=== PATIENT | female | born 1935 | race Caucasian/White ===

== ENCOUNTER → 2024-05-30 08:00 | Outpatient (BNV) | payer OTHER, SELFPAY | PROVIDERS: PCP Internal Medicine; Visit Provider Internal Medicine Medical Oncology | DX: D56.9 Thalassemia, unspecified (principal) | CPT/HCPCS: 99204; 99213 ==

== ENCOUNTER 2025-02-13 05:28 | Outpatient (REF) | payer OTHER, SELFPAY ==
[2025-02-13 05:32] LABS: MANUAL DIFF FLAG NO
[2025-02-13 06:26] LABS: Basophils Percent Auto 0.1 % (0-2); Eosinophils Absolute Auto 0.1 X10*3/uL (0.0-0.4); Eosinophils Percent Auto 0.9 % (0-4); Imm Gran Abs Auto 0.09 X10*3/uL (0.00-0.03); Lymphocytes Absolute Auto 1.3 X10*3/uL (1.2-4.9); Lymphocytes Percent Auto 13.8 % (20-40); Mean Corpuscular HGB Conc 33.3 g/dl (31.0-35.0); Mean Corpuscular Volume 83.9 fL (80.0-98.0); Monocytes Absolute Auto 0.5 X10*3/uL (0.1-1.2); Monocytes Percent Auto 4.9 % (2-11); NRBC Pct Auto 0.4 /100WBC (0.0-0.2); Neutrophils Absolute Auto 7.3 x10*3/uL (2.0-8.3); Neutrophils Percent Auto 79.3 % (45-73); Platelet Count 183 X10*3/uL (160-400); Red Blood Count 3.22 X10*6/uL (4.20-5.50); Red Cell Distribution Width 20.4 % (11.0-16.0); White Blood Count 9.2 X10*3/uL (4.8-10.8)
[2025-02-13 06:35] LABS: Alanine Aminotransferase < 6 U/L (0-31); Albumin Level 2.8 g/dL (3.5-5.0); Alkaline Phosphatase 180 U/L (39-117); Anion Gap 11 (12-20); Aspartate Amino Transferase 22 U/L (5-31); Bilirubin Total 2.5 mg/dL (0.0-1.0); Blood Urea Nitrogen 12 mg/dL (9-16); Carbon Dioxide 26 mmol/L (22-29); Chloride 101 mmol/L (96-108); Estimated Glomerular Filt Rate > 60; Glucose Random 100 mg/dL (60-115); Potassium 4.1 mmol/L (3.3-5.1); Sodium 134 mmol/L (135-145); Total Protein 6.6 g/dL (6.5-8.0)
== END 2025-02-13 05:29 | disposition home or self-care (01) ==
LOC: HO.MMNH2L 05:28
PROVIDERS: Visit Provider Student in an Organized Health Care Education/Training Program
DX: S72.91XD Unspecified fracture of right femur, subsequent encounter for closed fracture with routine healing (principal); J45.909 Unspecified asthma, uncomplicated; E80.4 Gilbert syndrome
CPT/HCPCS: 36415; 80053; 85025

== ENCOUNTER 2025-02-19 05:42 | Outpatient (REF) | payer OTHER, SELFPAY ==
[2025-02-19 05:40] LABS: MANUAL DIFF FLAG NO
[2025-02-19 06:21] LABS: Basophils Absolute Auto 0.1 X10*3/uL (0.0-0.2); Basophils Percent Auto 0.9 % (0-2); Eosinophils Absolute Auto 0.1 X10*3/uL (0.0-0.4); Eosinophils Percent Auto 1.7 % (0-4); Hematocrit 26.8 % (37.0-47.0); Hemoglobin 8.4 g/dl (12.0-16.0); Imm Gran Abs Auto 0.24 X10*3/uL (0.00-0.03); Imm Gran Pct Auto 3.5 % (0.0-0.4); Lymphocytes Absolute Auto 1.6 X10*3/uL (1.2-4.9); Lymphocytes Percent Auto 23.9 % (20-40); Mean Corpuscular HGB Conc 31.3 g/dl (31.0-35.0); Mean Corpuscular Hemoglobin 26.4 pg (27.0-33.0); Mean Corpuscular Volume 84.3 fL (80.0-98.0); Mean Platelet Volume 12.3 fL (9.4-12.3); Monocytes Absolute Auto 0.5 X10*3/uL (0.1-1.2); Monocytes Percent Auto 7.6 % (2-11); NRBC Pct Auto 0.4 /100WBC (0.0-0.2); Neutrophils Absolute Auto 4.3 x10*3/uL (2.0-8.3); Neutrophils Percent Auto 62.4 % (45-73); Platelet Count 311 X10*3/uL (160-400); Red Blood Count 3.18 X10*6/uL (4.20-5.50); Red Cell Distribution Width 21.8 % (11.0-16.0); White Blood Count 6.9 X10*3/uL (4.8-10.8)
[2025-02-19 06:32] LABS: Anion Gap 11 (12-20); Blood Urea Nitrogen 12 mg/dL (9-16); Calcium 7.9 mg/dL (8.4-10.2); Carbon Dioxide 25 mmol/L (22-29); Chloride 102 mmol/L (96-108); Estimated Glomerular Filt Rate > 60; Glucose Random 95 mg/dL (60-115); Potassium 4.1 mmol/L (3.3-5.1); Sodium 134 mmol/L (135-145)
== END 2025-02-19 05:43 | disposition home or self-care (01) ==
LOC: HO.MMNH2L 05:42
PROVIDERS: Visit Provider Student in an Organized Health Care Education/Training Program
DX: S72.91XD Unspecified fracture of right femur, subsequent encounter for closed fracture with routine healing (principal); J45.909 Unspecified asthma, uncomplicated; E80.4 Gilbert syndrome
CPT/HCPCS: 36415; 80048; 85025

== ENCOUNTER 2025-02-26 05:44 | Outpatient (REF) | payer OTHER, SELFPAY ==
[2025-02-26 06:30] LABS: Anion Gap 14 (12-20); Blood Urea Nitrogen 11 mg/dL (9-16); Calcium 8.3 mg/dL (8.4-10.2); Carbon Dioxide 23 mmol/L (22-29); Chloride 102 mmol/L (96-108); Estimated Glomerular Filt Rate > 60; Glucose Random 85 mg/dL (60-115); Potassium 4.8 mmol/L (3.3-5.1); Sodium 134 mmol/L (135-145)
[2025-02-26 06:59] LABS: Basophils Absolute Auto 0.1 X10*3/uL (0.0-0.2); Basophils Percent Auto 1.3 % (0-2); Eosinophils Absolute Auto 0.1 X10*3/uL (0.0-0.4); Eosinophils Percent Auto 1.1 % (0-4); Hematocrit 29.5 % (37.0-47.0); Imm Gran Abs Auto 0.48 X10*3/uL (0.00-0.03); Imm Gran Pct Auto 4.8 % (0.0-0.4); Lymphocytes Absolute Auto 2.8 X10*3/uL (1.2-4.9); Lymphocytes Percent Auto 28.3 % (20-40); MANUAL DIFF FLAG SCAN; Mean Corpuscular HGB Conc 30.5 g/dl (31.0-35.0); Mean Corpuscular Hemoglobin 26.6 pg (27.0-33.0); Mean Corpuscular Volume 87.3 fL (80.0-98.0); Monocytes Absolute Auto 0.4 X10*3/uL (0.1-1.2); Monocytes Percent Auto 4.3 % (2-11); Neutrophils Percent Auto 60.2 % (45-73); Red Blood Count 3.38 X10*6/uL (4.20-5.50); Red Cell Distribution Width 23.6 % (11.0-16.0); SCAN SMEAR FLAG 1
[2025-02-26 07:00] LABS: NRBC Pct Auto 1.8 /100WBC (0.0-0.2); PLT ABN DIST 1
[2025-02-26 07:40] LABS: SLIDE REVIEW VERIFIED
== END 2025-02-26 05:45 | disposition home or self-care (01) ==
LOC: HO.MMNH2L 05:44
PROVIDERS: Visit Provider Student in an Organized Health Care Education/Training Program
DX: S72.91XD Unspecified fracture of right femur, subsequent encounter for closed fracture with routine healing (principal); J45.909 Unspecified asthma, uncomplicated; E80.4 Gilbert syndrome
CPT/HCPCS: 36415; 80048; 84100; 85025

== ENCOUNTER 2025-02-27 23:40 | Outpatient (REF) | payer OTHER, SELFPAY ==
--- OUTSIDE RECORDS SUMMARY | 2025-02-28 07:22 | XMS_ITS | Clinical Summary ---
Author Organization [facility] [address] [place] [address] [address] [place] [address] Phone Care Team Providers Care Pressure Controller Name Role Phone Gino Hewitt MD Primary Care Provider Allergies Active Allergy Reactions Criticality Noted Date Comments Pollen Extracts High 11/08/2023 Other Reaction(s): Runny Nose/Rhinitis Medications metoprolol succinate (TOPROL-XL) 100 mg 24 hr tablet Take 1 tablet (100 mg total) by mouth 1 (one) time each day. 4 Active alendronate (FOSAMAX) 70 mg tablet Take 1 Tablet by mouth every 7 days for 360 days. The tablet must be taken with 6 to 8 oz of plain water. The tablet should be swallowed whole; do not chew or suck. It should be taken this first thing in the morning and 30 minutes before the first food, beverage (except plain water), or other medication(s) of the day. Do not take with mineral water or with other beverages. Patient should stay upright (not to lie down) for 30 minutes and until after first food of the day. 4 025 Active albuterol HFA (PROAIR HFA ; PROVENTIL HFA ; VENTOLIN HFA) 90 mcg/actuation inhaler Inhale 2 Puffs into the lungs 4 times daily as needed for Cough or Wheezing. 4 Active docusate sodium (COLACE) 100 mg capsule Take 1 capsule (100 mg total) by mouth 2 (two) times a day. Active cholecalcifero l (VITAMIN D-3) 50 mcg (2,000 unit) capsule Take by mouth. Activ e omeprazole 20 mg tablet,disinte grat, delay rel Take 1 tablet by mouth 1 (one) time each day. 3 Active hydrOXYzine HCL (ATARAX) 25 mg tablet Take 1 tablet (25 mg total) by mouth every 8 (eight) hours if needed for itching. 270 tablet 5 Active cyclobenzaprin e (FLEXERIL) 10 mg tablet Take 1 tablet (10 mg total) by mouth 3 (three) times a day if needed for muscle spasms. 270 each 5 Active cetirizine (ZyrTEC) 10 mg chewable tablet Chew 1 tablet (10 mg total) at bedtime as needed for allergies. Active polyethylene glycol (MIRALAX) 17 gram packet Take 17 g by mouth 1 (one) time each day if needed for constipation. 510 g 5 025 Active aspirin 81 mg EC tablet Take 1 tablet (81 mg total) by mouth 2 (two) times a day. 84 each 5 025 Active triamcinolone (KENALOG) 0.1 % cream 4 025 Discontinu ed(Entered in Error) diclofenac (VOLTAREN) 1 % topical gel 3 025 Discontinu ed(Entered in Error) simethicone (Mylanta Gas) 125 mg chewable tablet Chew 1 tablet (125 mg total) every 6 (six) hours if needed for flatulence. 60 tablet 11 5 025 Discontinu ed(Entered in Error) acetaminophen (TYLENOL) 325 mg tablet Take 2 tablets (650 mg total) by mouth every 8 (eight) hours if needed for mild pain, fever - temperature GREATER than 38 C (100.4 F), moderate pain or headaches for up to 5 days. 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 04/10/2024 Beta thalassemia, heterozygous 12/03/2023 Anemia 03/22/2023 Asthma 01/07/2023 Chronic sinusitis 01/07/2023 Gastroesophageal reflux disease 01/07/2023 Hypertension 01/07/2023 Resolved Problems Problem Noted Date Diagnosed Date Resolved Date Closed fracture of right hip , initial encounter 02/09/2025 02/12/2025 Closed right hip fracture 02/08/2025 Encounters Date Type Department Care Team Description 02/22/2025 7:43 AM EDT - 02/22/2025 11:59 PM EDT Hospital Encounter [facility] Ortho Xray [address] [place] [address] Pain Discharge Disposition: Home or Self Care 02/08/2025 1:00 PM EDT - 02/08/2025 3:00 PM EDT Surgery [facility] OR [address] [place] [phone] Kulwinder Pickett MD LONG GAMMA NAIL 02/08/2025 11:42 AM EDT Anesthesia Event [facility] OR [address] [place] [phone] Corby Guzmán DO 02/08/2025 5:20 AM EDT - 02/12/2025 2:53 PM EDT Hospital Encounter [facility] Intermediate Care Unit [address] [place] [address] Blake Saini MD Flores, Carlos M, MD Bell, Alistair A, MD Seralathan, Manikandan, MD Closed fracture of right hip, initial encounter ([facility]) (Primary Dx); Closed right hip fracture ([facility]) Discharge Disposition: [facility] 02/07/2025 [facility]phone [facility] - [address] [phone] Gino Hewitt MD 02/06/2025 1:56 PM EDT - 02/06/2025 11:59 PM EDT Hospital Encounter XRAY - [facility] [address] [place], [place] [phone] Pleural effusion on left Discharge Disposition: Home or Self Care 01/23/2025 2:31 PM EST - 01/23/2025 11:59 PM EST Hospital Encounter [facility] [address] [place], [place] [phone] Fall in home, initial encounter; Rib pain on left side Discharge Disposition: Home or Self Care 01/23/2025 2:00 PM EST Office Visit Adult Medicine [facility] [address] [place], [place] [phone] Gino Hewitt MD Fall in home, initial encounter (Primary Dx); Rib pain on left side; Pleural effusion on left 12/11/2024 2:40 PM EST Office Visit Gastroenterology [facility] [address] [facility] [address] [facility] [address] [place] [address] Bill Shepard PA Dysphagia, unspecified type (Primary Dx); Achalasia; Post-nasal drip; Burping from Last 3 Months Immunizations Name Administration Dates Next Due Pfizer SARS-CoV-2 COVID-19, mRNA, LNP-S, preservative free 03/29/2021,03/08/2021 Pneumococcal conjugate 20 va lent (Prevnar 20, PCV 20) 2mo and older 04/06/2023 Tdap Tetanus diptheria acell ular pertussis (Boostrix; Adacel) 7yo and older 04/06/2023 Surgical History Surgery Date Site/Laterality Comments CHOLECYSTECTOMY PROCEDURE: HISTORICAL CHOLECYSTECTOMY Medical History Medical History Date Comments GERD (gastroesophageal reflux disease) DX:GERD (gastroesophageal reflux disease) HTN (hypertension) DX:HTN (hyper tension) Chronic sinusitis DX:Chronic sin usitis Anemia DX:Anemia Bacterial infection due to H. pylori DX:Bacterial infection due to H. pylori Elevated liver enzymes DX:Elevat ed liver enzymes Gilbert's syndrome DX:Gilbert's syndrome Social History Tobacco Use Types Packs/Day Years Used Date Smoking Tobacco: Former Smokeless Tobacco: Never Tobacco Cessation:Counseling Given: Not Answered Alcohol Use Standard Drinks/Week Comments Never 0 (1 standard drink = 0.6 oz pur e alcohol) Housing Instability Answer Date Recorde d Are you worried that in the next 2 months you may not have stable housing? No 01/22/2025 Food Access & Nutrition Answer Date Rec orded Do you have access to a vari ety of food including fruits and vegetables? Yes 01/22/2025 Access to Healthcare Answer Date Record ed Within the last 3 months, ho w many times did you visit the emergency department for your medical care? 0 01/22/2025 Health Literacy Answer Date Recorded How often do you need to hav e someone help you when you read instructions, pamphlets, or other written material from your doctor or pharmacy? Never 01/22/2025 Caregiver: How often do you need to have someone help you when you read instructions, pamphlets, or other written material from your doctor or pharmacy? Not on file 01/22/2025 Financial Risk Answer Date Recorded How hard is it for you to pa y for the very basics like food, housing, medical care, and air conditioning / heating? Not very hard 01/22/2025 Transportation Answer Date Recorded Has the lack of transportati on kept you from meetings, work, or from getting things needed for daily living? No Has the lack of transportati on kept you from medical appointments or from getting medications? No 01/22/2025 Social Isolation Answer Date Recorded How often do you feel lonely or isolated from th ose around you? Rarely 01/22/2025 Food Risk Answer Date Recorded Within the past 12 months we worried whether our food would run out before we got money to buy more. Never true 01/22/2025 Within the past 12 months th e food we bought just didn't last and we didn't have money to get more. Never true 01/22/2025 Dependent Care Answer Date Recorded Do you need help finding or paying for care for your loved ones. For example, daycare manager or elderly care for an older adult? No 01/22/2025 Education Answer Date Recorded Do you think completing more education or training, like finishing a GED, going to college, or learning a trade, would be helpful for you? No 01/22/2025 Employment and Income Answer Date Recor ded During the last four weeks, have you been actively looking for work? No 01/22/2025 Living Situation Answer Date Recorded What is your living situation? 0 01/22/2025 Interpersonal Safety Answer Date Record ed Physical Abuse 02/08/2025 Verbal Abuse 02/08/2025 Comments Unknown Sex and Gender Information Value Date Recorded Sex Assigned at Not on file Legal Sex Female 4:34 PM EST Gender Identity Not on file Sexual Orientation Not on file Obstetrics History Last Filed Vital Signs Vital Sign Reading Time Taken Comments Blood Pressure 127/99 02/12/2025 11:07 AM EDT Pulse 99 02/12/2025 11:07 AM EDT Temperature 36.8 ??C (98.2 ??F) 02/12/2025 11:07 AM E DT Respiratory Rate 22 02/12/2025 11:07 AM EDT Oxygen Saturation 97% 02/12/2025 8:52 AM EDT Inhaled Oxygen Concentration - - Weight 47.2 kg (104 lb) 02/08/2025 5:30 AM EDT Height 152.4 cm (5') 02/08/2025 5:30 AM EDT Body Mass Index 20.31 02/08/2025 5:30 AM EDT Plan of Treatment Health Maintenance Due Date Last Done Comments Hepatitis A Vaccines (1 of 2 - Risk 2-dose series) 1956 Zoster Vaccines (1 of 2) 1987 Hepatitis B Vaccines (1 of 3 - Risk 3-dose series) 1997 RSV Immunization Patients 60+ Years Old (1 - 1-dose 75+ series) 2012 Medicare Annual Wellness Visit 12/28/2023 COVID-19 Vaccine (3 - season) 2024 03/29/2021, 03/08/2021 Influenza Vaccine (#1) 2024 12/12/2017 Depression Screening 01/22/2026 01/22/2025 Social Influencers of Health Screening 01/22/2026 01/22/2025 Hypertension/CHF/CAD Annual BMP Blood Test 02/11/2026 02/11/2025, 02/10/2025, 02/09/2025, Additional history exists Falls Risk Assessment 02/12/2026 02/12/2025, 025 Cholesterol Screening (Lipid Panel) 03/15/2028 03/15/2023 DTaP,Tdap,and Td Vaccines (2 - Td or Tdap) 04/06/2033 04/06/2023 Osteoporosis Screening (Bone Density Screening) 04/10/2034 04/10/2024, 04/10/2024, 08/26/2018 Pneumococcal Vaccine: 50+ Years Completed 04/06/2023, 12/12/2017 HIB Vaccines Aged Out No longer eligi ble based on patient's age to complete this topic HPV Vaccines Aged Out No longer eligi ble based on patient's age to complete this topic IPV Vaccines Aged Out No longer eligi ble based on patient's age to complete this topic MMR Vaccines Aged Out No longer eligi ble based on patient's age to complete this topic Meningococcal ACWY Vaccine Aged Out N o longer eligible based on patient's age to complete this topic Meningococcal B Vacine Aged Out No lo nger eligible based on patient's age to complete this topic RSV Immunization Patients Under 20 months Aged Out No longer eligible based on patient's age to complete this topic Varicella Vaccines Aged Out No longer eligible based on patient's age to complete this topic Medical Devices Implanted Type Area Tour Bus Driver Device Identifier Shelf Expiration Date Model / Serial / Lot Screw Locking 5x42.5mm - Sna - [id number] Implanted:Qty: 1 on 02/08/2025 by Kulwinder Pickett MD at [facility] Internal and External Fixation Right: Hip [employer] [id number] 08/28/2034 2360-504 2S / NA / [id number] [id number] Nail Long Right [id number] 125deg - Sn/A - [id number] Implanted:Qty: 1 on 02/08/2025 by Kulwinder Pickett MD at [facility] Internal and External Fixation Right: Hip [employer] 04/28/2034 8425-034 0S / N/A / [id number] Screw Lag D10.5x90mm - Sn/A - [id number] Implanted:Qty: 1 on 02/08/2025 by Kulwinder Pickett MD at [facility] Internal and External Fixation Right: Hip [employer] 09/28/2034 8160-009 0S / N/A / [id number] Procedures Procedure Name Priority Date/Time Associated Diagnosis Comments XR FEMUR 2+ VIEWS RIGHT Routine 02/22/2025 10:18 AM EDT Pain ECG ANNOTATED 02/13/2025 SST - GOLD Routine 02/12/2025 5:39 AM EDT EXTRA TUBES Routine 02/12/2025 5:39 AM EDT COMPLETE BLOOD COUNT Routine 02/12/2025 5:39 AM EDT OXYGEN THERAPY, ADULT Routine 02/11/2025 8:01 AM EDT BASIC METABOLIC PANEL Routine 02/11/2025 5:55 AM EDT COMPLETE BLOOD COUNT Routine 02/11/2025 5:55 AM EDT OXYGEN THERAPY, ADULT Routine 02/10/2025 8:01 PM EDT HEMOGLOBIN AND HEMATOCRIT Routine 02/10/2025 5:52 PM EDT TRANSFUSE RED BLOOD CELLS Routine 02/10/2025 9:11 AM EDT OXYGEN THERAPY, ADULT Routine 02/10/2025 8:01 AM EDT PEP THERAPY Routine 02/10/2025 6:00 AM EDT MANUAL DIFFERENTIAL - SYSMEX WAM Routine 02/10/2025 5:54 AM EDT CBC WITH AUTO DIFFERENTIAL Routine 02/10/2025 5:54 AM EDT HEPATIC FUNCTION PANEL Routine 02/10/2025 5:54 AM EDT PHOSPHORUS Routine 02/10/2025 5:54 AM EDT MAGNESIUM Routine 02/10/2025 5:54 AM EDT BASIC METABOLIC PANEL Routine 02/10/2025 5:54 AM EDT CBC AND DIFFERENTIAL Routine 02/10/2025 5:54 AM EDT SANCHEZ URINE CULTURE TUBE Routine 02/09/2025 10:35 PM EDT URINALYSIS WITH REFLEX MICROSCOPIC AND CULTURE Routine 02/09/2025 10:35 PM EDT URINALYSIS WITH REFLEX MICROSCOPIC AND CULTURE Routine 02/09/2025 10:35 PM EDT CULTURE URINE Routine 02/09/2025 10:35 PM EDT OXYGEN THERAPY, ADULT Routine 02/09/2025 8:01 PM EDT ECG 12-LEAD STAT 02/09/2025 7:37 PM EDT CULTURE BLOOD Routine 02/09/2025 7:05 PM EDT CBC WITH AUTO DIFFERENTIAL Routine 02/09/2025 7:00 PM EDT CBC AND DIFFERENTIAL Routine 02/09/2025 7:00 PM EDT CULTURE BLOOD Routine 02/09/2025 7:00 PM EDT POCT GLUCOSE BLOOD Routine 02/09/2025 6: 43 PM EDT OXYGEN THERAPY, ADULT Routine 02/09/2025 2:37 PM EDT OXYGEN THERAPY, ADULT Routine 02/09/2025 2:37 PM EDT PEP THERAPY Routine 02/09/2025 12:33 PM EDT TRANSFUSE RED BLOOD CELLS Routine 02/09/2025 10:52 AM EDT PREPARE RBC Routine 02/09/2025 7:10 AM EDT MANUAL DIFFERENTIAL - SYSMEX WAM Routine 02/09/2025 6:06 AM EDT CBC WITH AUTO DIFFERENTIAL Routine 02/09/2025 6:06 AM EDT CBC AND DIFFERENTIAL Routine 02/09/2025 6:06 AM EDT MAGNESIUM Routine 02/09/2025 6:06 AM EDT BASIC METABOLIC PANEL Routine 02/09/2025 6:06 AM EDT ALBUMIN Routine 02/08/2025 9:09 PM EDT HEMOGLOBIN AND HEMATOCRIT Routine 02/08/2025 6:29 PM EDT XR HIP 2-3 VIEWS RIGHT Routine 02/08/2025 2:43 PM EDT TRANSFUSE RED BLOOD CELLS Routine 02/08/2025 1:42 PM EDT TH AN ENDOTRACHEAL(NO CHARGE) Routine 02/08/2025 1:25 PM EDT ORIF HIP 02/08/2025 12:36 PM EDT Case Notes C-ARM,FX-TABLE PROTHROMBIN TIME WITH INR STAT 02/08/2025 12:14 PM EDT PREPARE RBC STAT 02/08/2025 11:42 AM EDT PREPARE RBC Routine 02/08/2025 9:14 AM EDT ECG 12-LEAD STAT 02/08/2025 9:07 AM EDT XR CHEST 1 VIEW STAT 02/08/2025 6:40 AM EDT XR HIP 2-3 VIEWS RIGHT STAT 02/08/2025 6:[address] HEAD WO CONTRAST STAT 02/08/2025 6 :30 AM EDT E ANTIGEN TYPE Routine 02/08/2025 5:54 AM EDT C ANTIGEN TYPE Routine 02/08/2025 5:54 AM EDT JKB ANTIGEN TYPE Routine 02/08/2025 5:54 AM EDT ANTIBODY IDENTIFICATION Routine 02/08/2025 5:54 AM EDT IRON AND TIBC Add-On 02/08/2025 5:54 AM EDT FERRITIN Add-On 02/08/2025 5:54 AM EDT RETICULOCYTE COUNT Add-On 02/08/2025 5: 54 AM EDT HAPTOGLOBIN Add-On 02/08/2025 5:54 AM EDT FOLATE Add-On 02/08/2025 5:54 AM EDT VITAMIN B12 Add-On 02/08/2025 5:54 AM EDT CBC WITH AUTO DIFFERENTIAL STAT 02/08/2025 5:54 AM EDT TYPE AND SCREEN STAT 02/08/2025 5:54 AM EDT CBC AND DIFFERENTIAL STAT 02/08/2025 5:54 AM EDT COMPREHENSIVE METABOLIC PANEL STAT 02/08/2025 5:[address] REPORT 02/08/2025 XR CHEST 2 VIEWS Routine 02/06/2025 2:22 PM EDT Pleural effusion on left XR RIBS W CHEST 3+ VIEWS LEFT Routine 01/23/2025 2:54 PM EST Fall in home, initial encounter Rib pain on left side EXTERNAL XRAY REPORT 01/23/2025 DXA BONE DENSITY STUDY 1+ SITS AXIAL SKEL Routine 04/10/2024 1:44 PM EDT Encounter for screening for osteoporosis LIPID PANEL Routine 03/15/2023 from Last 3 Months or Most Recently Relevant to Health Maintenance Results * XR Femur 2+ Views Right (02/22/2025 10:18 AM EDT) Narrative RIS PACS/VR - 02/22/2025 10:18 AM EDT This order has been auto-finalized and does not contain a result. us Ann Valle MD IMG XR PROCEDURES Final Result RIS PACS/VR * ECG-Annotated (02/13/2025) Provider Onbase MD ECG ORDERABLES Final Result * SST tube (02/12/2025 5:39 AM EDT) Pathologist [facility] Extra Tube Hold for add-ons. 02/12/2025 8:01 AM EDT [facility] Comment:Auto resulted. Blood Venous blood specimen / Unknown Venipuncture / Unknown 02/12/2025 5:39 AM EDT 02/12/2025 6:13 AM EDT Minh Childress MD LAB BLOOD ORDERABLES Fi nal Result Performing Organization Address City/[facility]/ZIP Co de Phone Number [facility] [address] [place] [address], [place] [phone] * (ABNORMAL) Complete blood count (02/12/2025 5:39 AM EDT) Only the most recent of2 resultswithin the time period is included. WBC 9.7 4.8 - 10.8 K/mcL LAB HEMETOLOGY METHOD 02/12/2025 6:55 AM EDT [facility] RBC 3.20(L) 3.80 - 4.80 M/[facility] LAB HEMETOLOGY METHOD 02/12/2025 6:55 AM EDT [facility] Hemoglobin 8.8(L) 11.5 - 16.0 g/dL LAB HEMETOLOGY METHOD 02/12/2025 6:55 AM EDT [facility] Hematocrit 27.8(L) 35.0 - 47.0 % LAB HEMETOLOGY METHOD 02/12/2025 6:55 AM EDT [facility] MCV 86.1 79.0 - 98.0 FL LAB HEMETOLOGY METHOD 02/12/2025 6:55 AM EDT [facility] MCH 27.2 27.0 - 32.0 pcg LAB HEMETOLOGY METHOD 02/12/2025 6:55 AM EDT [facility] MCHC 31.7(L) 32.0 - 37.0 g/dL LAB HEMETOLOGY METHOD 02/12/2025 6:55 AM EDT [facility] RDW 19.9(H) 11.0 - 15.0 % LAB HEMETOLOGY METHOD 02/12/2025 6:55 AM EDT [facility] Platelets 147 130 - 400 K/mcL LAB HEMETOLOGY METHOD 02/12/2025 6:55 AM EDT [facility] MPV LAB HEMETOLOGY METHOD 02/12/2025 6:55 AM EDT [facility] Comment:Not Measured NRBC 0.3 <1.0 % LAB HEMETOLOGY METHOD 02/12/2025 6:55 AM EDT [facility] NRBC Absolute 0.03 <0.10 K/mcL LAB HEMETOLOGY METHOD 02/12/2025 6:55 AM EDT [facility] Blood Venous blood specimen / Unknown Venipuncture / Unknown 02/12/2025 5:39 AM EDT 02/12/2025 6:12 AM EDT us Marc Salvador MD LAB BLOOD ORDERABLES Final Re sult [facility] [address] [place] [address], * (ABNORMAL) Basic metabolic panel (02/11/2025 5:55 AM EDT) Only the most recent of3 resultswithin the time period is included. Sodium 132(L) 133 - 145 mmol/L LAB CHEMISTRY METHOD 02/11/2025 7:04 AM [facility] Potassium 4.3 3.5 - 5.5 mmol/L LAB CHEMISTRY METHOD 02/11/2025 7:04 AM [facility] Chloride 98 96 - 110 mmol/L LAB CHEMISTRY METHOD 02/11/2025 7:04 AM [facility] CO2 29 21 - 32 mmol/L LAB CHEMISTRY METHOD 02/11/2025 7:04 AM [facility] Anion Gap 5 3 - 11 LAB CHEMISTRY METHOD 02/11/2025 7:04 AM [facility] Glucose 105(H) 70 - 100 mg/dL LAB CHEMISTRY METHOD 02/11/2025 7:04 AM [facility] BUN 17 5 - 25 mg/dL LAB CHEMISTRY METHOD 02/11/2025 7:04 AM [facility] Creatinine 0.48(L) 0.50 - 1.10 mg/dL LAB CHEMISTRY METHOD 02/11/2025 7:04 AM [facility] eGFR 92 >=60 mL/min/1. 73m2 LAB CHEMISTRY METHOD 02/11/2025 7:04 AM [facility] Comment:Calculation based on the??Chronic Kidney Disease Epidemiology Collaboration (CKD-EPI) equation refit??without adjustment for race. BUN/Creatinine Ratio 35.4 LAB CHEMISTRY METHOD 02/11/2025 7:04 AM [facility] Calcium 7.6(L) 8.5 - 10.5 mg/dL LAB CHEMISTRY METHOD 02/11/2025 7:04 AM [facility] Blood Venous blood specimen / Unknown Venipuncture / Unknown 02/11/2025 5:55 AM EDT 02/11/2025 6:19 AM EDT us Marc Salvador MD LAB BLOOD ORDERABLES Final Re sult Performing Organization Address City/[facility]/ZIP Co de Phone Number [facility] [address] [place] [address], [place] [phone] * (ABNORMAL) Hemoglobin and hematocrit (02/10/2025 5:52 PM EDT) Only the most recent of2 resultswithin the time period is included. [facility] Hemoglobin 8.7(L) 11.5 - 16.0 g/dL LAB HEMETOLOGY METHOD 02/10/2025 6:30 PM EDT [facility] Hematocrit 26.9(L) 35.0 - 47.0 % LAB HEMETOLOGY METHOD 02/10/2025 6:30 PM EDT [facility] Blood Venous blood specimen / Unknown Venipuncture / Unknown 02/10/2025 5:52 PM EDT 02/10/2025 6:15 PM EDT us Marc Salvador MD LAB BLOOD ORDERABLES Final Re sult Performing Organization Address [facility] Co de Phone Number [facility] [address] [place] [address], [place] [phone] * Transfuse RBC (02/10/2025 11:51 AM EDT) Only the most recent of3 resultswithin the time period is included. us Marc Salvador MD BLOOD TRANSFUSION ORDERABLES Final Result * (ABNORMAL) Manual differential (02/10/2025 5:54 AM EDT) Only the most recent of2 resultswithin the time period is included. Neutrophils % 89.0 % LAB HEMETOLOGY METHOD 02/10/2025 7:47 AM EDT [facility] Lymphocytes % 5.0 % LAB HEMETOLOGY METHOD 02/10/2025 7:47 AM EDT [facility] Monocytes % 4.0 % LAB HEMETOLOGY METHOD 02/10/2025 7:47 AM [facility] Eosinophils % 0.0 % LAB HEMETOLOGY METHOD 02/10/2025 7:47 AM [facility] Basophils % 0.0 % LAB HEMETOLOGY METHOD 02/10/2025 7:47 AM [facility] Metamyelocytes % 1.0(H) % LAB HEMETOLOGY METHOD 02/10/2025 7:47 AM [facility] Promyelocytes % 2.0(H) % LAB HEMETOLOGY METHOD 02/10/2025 7:47 AM [facility] Neutrophils Absolute Manual 11.48(H) 1.50 - 7.00 K/mcL LAB HEMETOLOGY METHOD 02/10/2025 7:47 AM [facility] Lymphocytes Absolute 0.65(L) 1.00 - 5.00 K/mcL LAB HEMETOLOGY METHOD 02/10/2025 7:47 AM [facility] Monocytes Absolute Manual 0.52 0.20 - 1.00 K/mcL LAB HEMETOLOGY METHOD 02/10/2025 7:47 AM [facility] Eosinophils Absolute Manual 0.00 0.00 - 0.50 K/mcL LAB HEMETOLOGY METHOD 02/10/2025 7:47 AM [facility] Basophils Absolute Manual 0.00 0.00 - 0.20 K/mcL LAB HEMETOLOGY METHOD 02/10/2025 7:47 AM [facility] Metamyelocytes Absolute Manual 0.13(H) 0.00 - 0.00 K/mcL LAB HEMETOLOGY METHOD 02/10/2025 7:47 AM [facility] Promyelocytes Absolute Manual 0.26(H) 0.00 - 0.00 K/mcL LAB HEMETOLOGY METHOD 02/10/2025 7:47 AM EDT [facility] Rbc Morphology Present( A) Consistent with indices, Normal for [place] LAB HEMETOLOGY METHOD 02/10/2025 7:47 AM EDT [facility] Platelet Morphology - WAM See Note(A) Normal LAB HEMETOLOGY METHOD 02/10/2025 7:47 AM EDT [facility] Comment:PLT: Normal Polychromasia Present Present( A) (none) LAB HEMETOLOGY METHOD 02/10/2025 7:47 AM EDT [facility] Schistocytes Present < 5%(A) (none) LAB HEMETOLOGY METHOD 02/10/2025 7:47 AM EDT [facility] Tear Drop Cells Present 5 - 10%(A) (none) LAB HEMETOLOGY METHOD 02/10/2025 7:47 AM EDT [facility] Blood Venous blood specimen / Unknown Venipuncture / Unknown 02/10/2025 5:54 AM EDT 02/10/2025 6:47 AM EDT us Sophie Noonan NP LAB BLOOD ORDERABLES Final Resul t [facility] [address] [place] [address], * (ABNORMAL) CBC auto differential (02/10/2025 5:54 AM EDT) Only the most recent of4 resultswithin the time period is included. WBC 12.9(H) 4.8 - 10.8 K/mcL LAB HEMETOLOGY METHOD 02/10/2025 7:47 AM EDT [facility] RBC 2.50(L) 3.80 - 4.80 M/mcL LAB HEMETOLOGY METHOD 02/10/2025 7:47 AM EDT [facility] Hemoglobin 6.8(L) 11.5 - 16.0 g/dL LAB HEMETOLOGY METHOD 02/10/2025 7:47 AM EDT [facility] Hematocrit 21.0(L) 35.0 - 47.0 % LAB HEMETOLOGY METHOD 02/10/2025 7:47 AM EDT [facility] MCV 84.3 79.0 - 98.0 FL LAB HEMETOLOGY METHOD 02/10/2025 7:47 AM EDT [facility] MCH 27.3 27.0 - 32.0 pcg LAB HEMETOLOGY METHOD 02/10/2025 7:47 AM EDT [facility] MCHC 32.4 32.0 - 37.0 g/dL LAB HEMETOLOGY METHOD 02/10[facility]2025 7[facility] RDW 20.4(H) 11.0 - 15.0 % LAB HEMETOLOGY METHOD 02/10/2025 7:47 [facility] Platelets 110(L) 130 - 400 K/mcL LAB HEMETOLOGY METHOD 02/10/2025 7:47 AM EDT [facility] MPV LAB HEMETOLOGY METHOD 02/10/2025 7:47 AM EDT [facility] Comment:Not Measured NRBC 0.6 <1.0 % LAB HEMETOLOGY METHOD 02/10/2025 7:47 AM EDT [facility] NRBC Absolute 0.08 <0.10 K/mcL LAB HEMETOLOGY METHOD 02/10/2025 7:47 AM T [facility] Blood Venous blood specimen / Unknown Venipuncture / Unknown 02/10/2025 5:54 AM EDT 02/10/2025 6:47 AM EDT us Sophie Noonan NP LAB BLOOD ORDERABLES Final Resul t [facility] [address] [place] [address], [place] [phone] * (ABNORMAL) Phosphorus (02/10/2025 5:54 AM EDT) Pathologist [facility] Phosphorus 1.9(L) 2.5 - 4.5 mg/dL LAB CHEMISTRY METHOD 02/10/2025 7:44 AM EDT [facility] Blood Venous blood specimen / Unknown Venipuncture / Unknown 02/10/2025 5:54 AM EDT 02/10/2025 6:47 AM EDT Sophie Noonan NP LAB BLOOD ORDERABLES Final Resul t Performing Organization Address [facility] de Phone Number [facility] [address] [place] [address], [place] [phone] * Magnesium (02/10/2025 5:54 AM EDT) Only the most recent of2 resultswithin the time period is included. [facility] Magnesium 2.1 1.9 - 2.6 mg/dL LAB CHEMISTRY METHOD 02/10/2025 7:44 AM EDT [facility] Blood Venous blood specimen / Unknown Venipuncture / Unknown 02/10/2025 5:54 AM EDT 02/10/2025 6:47 AM EDT us Sophie Noonan NP LAB BLOOD ORDERABLES Final Resul t Performing Organization Address City/[facility]/ZIP Co de Phone Number [facility] [address] [place] [address], [place] [phone] * (ABNORMAL) Hepatic function panel (02/10/2025 5:54 AM EDT) Pathologist [facility] Total Protein 5.5(L) 6.0 - 8.0 g/dL LAB CHEMISTRY METHOD 02/10/2025 8:01 AM EDT [facility] Albumin 2.5(L) 3.2 - 5.0 g/dL LAB CHEMISTRY METHOD 02/10/2025 8:01 AM EDT [facility] Total Bilirubin 4.0(H) 0.0 - 1.4 mg/dL LAB CHEMISTRY METHOD 02/10/2025 8:01 AM [facility] Bilirubin, Direct 1.5(H) 0.0 - 0.3 mg/dL LAB CHEMISTRY METHOD 02/10/2025 8:01 AM [facility] Bilirubin, Indirect 2.5(H) 0.0 - 1.1 mg/dL LAB CHEMISTRY METHOD 02/10/2025 8:01 AM [facility] ALT (SGPT) <6(L) 10 - 60 unit/L LAB CHEMISTRY METHOD 02/10/2025 8:01 AM [facility] Comment:Results verified by repeat testing AST (SGOT) 18 10 - 42 unit/L LAB CHEMISTRY METHOD 02/10/2025 8:01 AM [facility] Alkaline Phosphatase 155(H) 42 - 121 unit/L LAB CHEMISTRY METHOD 02/10/2025 8:01 AM [facility] Blood Venous blood specimen / Unknown Venipuncture / Unknown 02/10/2025 5:54 AM EDT 02/10/2025 6:47 AM EDT us Sophie Noonan NP LAB BLOOD ORDERABLES Final Resul t [facility] [address] [place] [address], [place] [phone] * (ABNORMAL) Urinalysis with reflex microscopic and culture (02/09/2025 10:35 PM EDT) Specific [place] Urine 1.017 1.003 - 1.030 LAB URINALYSIS - AUTOMATED METHOD 02/10/2025 12:53 AM [facility] pH, Urine 5.5 5.0 - 8.0 pH LAB URINALYSIS - AUTOMATED METHOD 02/10/2025 12:53 AM [facility] Leukocytes, Urine Trace(A) Negative LAB URINALYSIS - AUTOMATED METHOD 02/10/2025 12:53 AM [facility] Nitrite, Urine Negative Negative LAB URINALYSIS - AUTOMATED METHOD 02/10/2025 12:53 AM [facility] Protein, Urine 30(A) <=Trace mg/dL LAB URINALYSIS - AUTOMATED METHOD 02/10/2025 12:53 AM [facility] Glucose, Urine Negative Negative mg/dL LAB URINALYSIS - AUTOMATED METHOD 02/10/2025 12:53 AM [facility] Ketones, Urine Trace(A) Negative mg/dL LAB URINALYSIS - AUTOMATED METHOD 02/10/2025 12:53 AM [facility] Urobilinogen , Urine 1.0 0.2 - 1.0 mg/dL LAB URINALYSIS - AUTOMATED METHOD 02/10/2025 12:53 AM [facility] Bilirubin, Urine Negative Negative LAB URINALYSIS - AUTOMATED METHOD 02/10/2025 12:53 AM [facility] Blood, Urine Small(A) Negative LAB URINALYSIS - AUTOMATED METHOD 02/10/2025 12:53 AM [facility] RBC, Urine 6.2(H) 0 - 4 /HPF LAB URINALYSIS - AUTOMATED METHOD 02/10/2025 12:53 AM [facility] WBC, Urine 2.4 0 - 4 /HPF LAB URINALYSIS - AUTOMATED METHOD 02/10/2025 12:53 AM [facility] Squamous Epithelial, Urine 28 0 - 60 /LPF LAB URINALYSIS - AUTOMATED METHOD 02/10/2025 12:53 AM [facility] Bacteria, Urine Negative Negative /HPF LAB URINALYSIS - AUTOMATED METHOD 02/10/2025 12:53 AM [facility] Hyaline Casts, Urine 12.0(H) 0 - 3 /LPF LAB URINALYSIS - AUTOMATED METHOD 02/10/2025 12:53 AM EDT [facility] Other Casts, Urine 2-5 FINE GRANULAR CASTS /LPF 02/10/2025 12:53 AM EDT [facility] Urine Urine specimen from urinary conduit / Unknown Non-blood Collection / Unknown 02/09/2025 10:35 PM EDT 02/10/2025 12:16 AM EDT us Marc Salvador MD LAB URINE ORDERABLES Edited R esult - Final [facility] [address] [place] [address], [place] [phone] * Sanchez urine culture tube (02/09/2025 10:35 PM EDT) Extra Tube Hold for add-ons. 02/10/2025 2:01 AM EDT [facility] Comment:Auto resulted. Urine Urine specimen from urinary conduit / Unknown Non-blood Collection / Unknown 02/09/2025 10:35 PM EDT 02/10/2025 12:16 AM EDT us Marc Salvador MD LAB URINE ORDERABLES Final Re sult [facility] [address] [place] [address], [place] [phone] * Culture urine (02/09/2025 10:35 PM EDT) Urine Urine specimen from urinary conduit / Unknown Non-blood Collection / Unknown 02/09/2025 10:35 PM EDT 02/10/2025 12:51 AM EDT Narrative [facility] - 02/12/2025 9:43 AM EDT Urine culture not performed. ??Please contact Infection Control if additional information is required. us Marc Salvador MD LAB MICROBIOLOGY - GENERAL OR DERABLES Final Result Performing Organization Address [facility] Co de Phone Number [facility] [address] [place] [address], [place] [phone] * ECG 12 lead (02/09/2025 7:37 PM EDT) Only the most recent of2 resultswithin the time period is included. Ventricular Rate ECG 106 BPM GEMUSE Atrial Rate 106 BPM GEMUSE P-R Interval 148 ms GEMUSE QRS Duration 68 ms GEMUSE Q-T Interval 324 ms GEMUSE QTc 430 ms GEMUSE P Wave [place] 54 degrees GEMUSE R [place] -32 degrees GEMUSE T [place] 55 degrees GEMUSE ECG Interpretation Sinus tachycardia with Premature atrial complexes Left axis deviation Minimal voltage criteria for LVH, may be normal variant Poor R wave progression Abnormal ECG When compared with ECG of 08-FEB-2025 09:07, No significant change was found Confirmed by Martine SARGENT JAMES ([id number]) on 02/10/2025 8:31:59 PM GEMUSE 02/09/2025 7:37 PM EDT 02/10/2025 8:31 PM EDT us Marc Salvador MD ECG ORDERABLES Final Result Performing Organization Address [facility] de Phone Number GEMUSE * Culture blood (02/09/2025 7:05 PM EDT) Only the most recent of2 resultswithin the time period is included. Culture, Blood No growth at 5 days 02/14/2025 8:01 PM EDT [facility] Blood Venous blood specimen / Unknown Venipuncture / Unknown 02/09/2025 7:05 PM EDT 02/09/2025 7:11 PM EDT us Marc Salvador MD LAB MICROBIOLOGY - GENERAL OR DERABLES Final Result [facility] [address] [place] [address], [place] [phone] * (ABNORMAL) POCT Glucose, blood (02/09/2025 6:43 PM EDT) Glucose POCT 176(H) 70 - 100 mg/dL 02/09/2025 6:44 PM EDT [facility] Blood Capillary blood specimen / Unknown 02/09/2025 6:43 PM EDT 02/09/2025 6:45 PM EDT Marc Salvador MD LAB POINT OF CARE TE ST DOCKED DEVICE UNSOLICITED RESULTS Final Result [facility] [address] [place] [address], [place] [phone] * Prepare RBC: 1 Units (02/09/2025 7:10 AM EDT) Only the most recent of3 resultswithin the time period is included. Product Code [id number] 02/12/2025 7:05 AM EDT [facility] Unit Number [id number] 02/13/20 25 7:05 AM EDT [facility] Crossmatch Compatible 02/09/2025 1:31 PM EDT [facility] Dispense Status Released From Crossmatch 02/12/2025 7:05 AM EDT [facility] Unit ABO Rh ONEG 02/12/2025 7:05 AM EDT [facility] Unit Expiration Date Time [id number] [facility] Type 9500 [facility]25 [facility] Blood Venous blood specimen / Unknown 02/09/2025 7:10 AM EDT 02/08/2025 6:18 AM EDT Kulwinder Lobo MD BLOOD BANK PRODUCT ORDERABL ES Final Result Performing Organization Address [facility] de Phone Number [facility] [address] [place] [address], [place] [phone] * (ABNORMAL) Serum albumin (02/08/2025 9:09 PM EDT) Albumin 2.5(L) 3.2 - 5.0 g/dL LAB CHEMISTRY METHOD 02/08/2025 9:29 PM EDT [facility] Blood Venous blood specimen / Unknown Venipuncture / Unknown 02/08/2025 9:09 PM EDT 02/08/2025 9:09 PM EDT Jameel Mendez NP LAB BLOOD ORDERABLES Final Resul t Performing Organization Address [facility] de Phone Number [facility] [address] [place] [address], [place] [phone] * XR Hip 2-3 Views Right (02/08/2025 2:43 PM EDT) Only the most recent of2 resultswithin the time period is included. Anatomical Region Laterality Modality Lower Extremities, Hip Right Radio Flu oroscopy 02/09/2025 8:46 AM EDT Impressions 02/09/2025 8:49 AM EDT Imaging assistance provided during instrumentation and fixation of the previously demonstrated proximal right femoral fracture -------- FINAL REPORT -------- Dictated By: Nick Flaherty Dictated Date: 02/09/2025 08:46 ET Assigned Physician: Nick Flaherty Reviewed and Electronically Signed By: Nick Flaherty Signed Date: 02/09/2025 08:49 ET Workstation ID: [id number] Transcribed By: Self Edit Transcribed Date: 02/09/2025 08:46 ET Narrative 02/09/2025 8:49 AM EDT EXAMINATION: Imaging assistance provided during a procedure CLINICAL INFORMATION: Long gamma nail right hip COMPARISON: 02/08/2025 TECHNIQUE: ORTHOPEDIC-Imaging assistance was provided during an orthopedic procedure. Total dose area product: 7589.8 mGycm2 Fluoroscopy time: 3 minutes 26.8 seconds FINDINGS: Images obtained in the operating room during instrumentation of the right femur. The distal aspect of an intramedullary elle extends through the distal metaphysis with a single distal interlocking screw. The antegrade intramedullary elle enters via the greater trochanter. Orthogonal threaded nail projects through the intratrochanteric region, femoral neck and projects into the femoral head. The alignment is much improved when compared to preoperative images. There is comminution of the lesser trochanter. Procedure Note Nick Flaherty MD - 02/09/2025 EXAMINATION: Imaging assistance provided during a procedure CLINICAL INFORMATION: Long gamma nail right hip COMPARISON: 02/08/2025 TECHNIQUE: ORTHOPEDIC-Imaging assistance was provided during an orthopedic procedure. Total dose area product: 7589.8 mGycm2 Fluoroscopy time: 3 minutes 26.8 seconds FINDINGS: Images obtained in the operating room during instrumentation of the rightfemur. The distal aspect of an intramedullary elle extends through the distalmetaphysis with a single distal interlocking screw. The antegradeintramedullary elle enters via the greater trochanter. Orthogonal threadednail projects through the intratrochanteric region, femoral neck andprojects into the femoral head. The alignment is much improved when compared to preoperative images. Thereis comminution of the lesser trochanter. IMPRESSION: Imaging assistance provided during instrumentation and fixation of thepreviously demonstrated proximal right femoral fracture -------- FINAL REPORT -------- Dictated By: Nick Flaherty Dictated Date: 02/09/2025 08:46 ET Assigned Physician: Nick Flaherty Reviewed and Electronically Signed By: Nick Flahetry Signed Date: 02/09/2025 08:49 ET Workstation ID: [id number] Transcribed By: Self Edit Transcribed Date: 02/09/2025 08:46 ET us Pankaj Jin MD IMG XR PROCEDURES Final Resul t * TH AN ENDOTRACHEAL(NO CHARGE) (02/08/2025 1:25 PM EDT) Narrative Colt Peña CRNA - 02/08/2025 1:25 PM EDT Colt Peña CRNA ? 02/08/2025 ??1:26 PM General Information and Staff Patient location during procedure: OR Performed by: Colt Peña CRNA Authorized by: Corby Guzmán DO ?? Intubation Airway not difficult Urgency: elective Final Airway Details Successful airway: ETT Cuffed: yes Successful intubation technique: direct laryngoscopy Endotracheal tube insertion site: oral Blade: Giselle Blade size: #3 ETT size (mm): 7.0 Cormack-Lehane Classification: grade I - full view of glottis Placement verified by: chest auscultation and capnometry Cuff volume (mL): 7 Number of attempts at approach: 1Final airway type: endotracheal airway Indications and Patient Condition Indications for airway management: anesthesia and airway protection Spontaneous ventilation: present Sedation level: Yes Preoxygenated: yes Soft Tissue Damage: No Dentition Unchanged: Yes Patient position: neutral Mask difficulty assessment: 2 - vent by mask + OA or adjuvant +/- NMBA Corby Guzmán DO ANESTHESIA ORDERABLES Final Res ult * (ABNORMAL) Prothrombin time with INR (02/08/2025 12:14 PM EDT) Protime 15.0(H) 10.6 - 13.9 sec LAB COAGULATION METHOD 02/08/2025 1:03 PM EDT [facility] INR 1.2 LAB COAGULATION METHOD 02/08/2025 1:03 PM EDT [facility] Blood Venous blood specimen / Unknown Venipuncture / Unknown 02/08/2025 12:14 PM EDT 02/08/2025 12:38 PM EDT Live [facility] LAB BLOOD ORDERABLES Final Result [facility] [address] [place] [address], [place] [phone] * XR Chest 1 View (02/08/2025 6:40 AM EDT) Anatomical Region Laterality Modality Body Radiographic Michelle ging 02/08/2025 7:00 AM EDT Impressions 02/08/2025 7:02 AM EDT Hypoinflation with bibasilar opacities likely atelectasis. Prominence of the medial right upper mediastinum. ??There is gas previously in this area -------- FINAL REPORT -------- Dictated By: Nick Flaherty Dictated Date: 02/08/2025 07:00 ET Assigned Physician: Nick Flaherty Reviewed and Electronically Signed By: Nick Flaherty Signed Date: 02/08/2025 07:02 ET Workstation ID: [id number] Transcribed By: Self Edit Transcribed Date: 02/08/2025 07:00 ET Narrative 02/08/2025 7:02 AM EDT EXAMINATION: CHEST CLINICAL INFORMATION: Evaluate prior to surgery COMPARISON: Frontal view 01/04/2024 TECHNIQUE: Supine frontal view of the chest FINDINGS: Calcified tortuous aorta. ??Prominence in the medial right upper mediastinum. ??There was gas lucency in this area previously. ??The cardiac silhouette is prominent. ??No change in the dora. ??No alveolar edema. ??There is some volume loss in the right infrahilar region and likely some linear density at the left base. No definite pneumothorax. Osteopenia. ??There is volume loss in the lower thoracic spine. ??There are surgical clips in the right upper quadrant. Procedure Note Nick Flaherty MD - 02/08/2025 EXAMINATION: CHEST CLINICAL INFORMATION: Evaluate prior to surgery COMPARISON: Frontal view 01/04/2024 TECHNIQUE: Supine frontal view of the chest FINDINGS: Calcified tortuous aorta. Prominence in the medial right uppermediastinum. There was gas lucency in this area previously. The cardiacsilhouette is prominent. No change in the dora. No alveolar edema.There is some volume loss in the right infrahilar region and likely somelinear density at the left base. No definite pneumothorax. Osteopenia. There is volume loss in the lower thoracic spine. There aresurgical clips in the right upper quadrant. IMPRESSION: Hypoinflation with bibasilar opacities likely atelectasis. Prominence of the medial right upper mediastinum. There is gas previouslyin this area -------- FINAL REPORT -------- Dictated By: Nick Flaherty Dictated Date: 02/08/2025 07:00 ET Assigned Physician: Nick Flaherty Reviewed and Electronically Signed By: Nick Flaherty Signed Date: 02/08/2025 07:02 ET Workstation ID: [id number] Transcribed By: Self Edit Transcribed Date: 02/08/2025 07:00 ET us Blake Saini MD IMG XR PROCEDURES Final Result * CT Head wo Contrast (02/08/2025 6:30 AM EDT) Anatomical Region Laterality Modality Head and Neck Computed Tomogra phy 02/08/2025 6:57 AM EDT Impressions 02/08/2025 6:57 AM EDT Impression: No evidence of acute process. Ischemic microangiopathy and diffuse volume loss. This document has been electronically signed by: Derrick Giordano MD on 02/08/2025 06:57:31 Narrative 02/08/2025 6:57 AM EDT INDICATION: Head trauma, minor (Age >= 67y) CT head without contrast Comparison: None Findings: No evidence of acute territorial infarct. There is patchy low density in the periventricular and subcortical white matter. Diffuse volume loss is noted. No hydrocephalus. No hemorrhage, mass effect, mass lesion or midline shift. No abnormal extra-axial fluid. No calvarial fracture. Paranasal sinuses demonstrate partial opacification of the sphenoid sinus Procedure Note Derrick Giordano MD - 02/08/2025 INDICATION: Head trauma, minor (Age >= 67y) CT head without contrast Comparison: None Findings: No evidence of acute territorial infarct. There is patchy low density in the periventricular and subcortical white matter. Diffuse volume loss is noted. No hydrocephalus. No hemorrhage, mass effect, mass lesion or midline shift. No abnormal extra-axial fluid. No calvarial fracture. Paranasal sinuses demonstrate partial opacification of the sphenoidsinus IMPRESSION: Impression: No evidence of acute process. Ischemic microangiopathy and diffusevolume loss. This document has been electronically signed by: Derrick Giordano MD on 02/08/2025 06:57:31 us Blake Saini MD IMG CT PROCEDURES Final Result * Jkb antigen type (02/08/2025 5:54 AM EDT) Jkb Antigen Negative 02/08/2025 1:09 PM EDT [facility] Blood Venous blood specimen / Unknown Venipuncture / Unknown 02/08/2025 5:54 AM EDT 02/08/2025 6:18 AM EDT us Blake Saini MD LAB BLOOD BANK TEST ORDERABLES Final Result Performing Organization Address City/[facility]/ZIP Co de Phone Number [facility] [address] [place] [address], [place] [phone] * E antigen type (02/08/2025 5:54 AM EDT) E Antigen Negative 02/08/2025 1:24 PM EDT [facility] Blood Venous blood specimen / Unknown Venipuncture / Unknown 02/08/2025 5:54 AM EDT 02/08/2025 6:18 AM EDT us Blake Saini MD LAB BLOOD BANK TEST ORDERABLES Final Result [facility] [address] [place] [address], [place] [phone] * C antigen type (02/08/2025 5:54 AM EDT) C Antigen Negative 02/08/2025 1:21 PM EDT [facility] Blood Venous blood specimen / Unknown Venipuncture / Unknown 02/08/2025 5:54 AM EDT 02/08/2025 6:18 AM EDT us Blake Saini MD LAB BLOOD BANK TEST ORDERABLES Final Result Performing Organization Address [facility] Co de Phone Number [facility] [address] [place] [address], [place] [phone] * (ABNORMAL) Iron and TIBC (02/08/2025 5:54 AM EDT) Iron 39(L) 40 - 150 mcg/dL LAB CHEMISTRY METHOD 02/08/2025 9:28 AM EDT [facility] TIBC 166(L) 250 - 450 mcg/dL LAB CHEMISTRY METHOD 02/08/2025 9:28 AM EDT [facility] Iron Saturation 23 15 - 50 % LAB CHEMISTRY METHOD 02/08/2025 9:28 AM EDT [facility] Blood Venous blood specimen / Unknown Venipuncture / Unknown 02/08/2025 5:54 AM EDT 02/08/2025 6:18 AM EDT Pankaj Jin MD LAB BLOOD ORDERABLES Final Re sult Performing Organization Address [facility] de Phone Number [facility] [address] [place] [address], [place] [phone] * Antibody identification (02/08/2025 5:54 AM EDT) Antibody Identification Jkb Antibody (Mendoza b) 02/08/2025 1:02 PM EDT [facility] Blood Venous blood specimen / Unknown Venipuncture / Unknown 02/08/2025 5:54 AM EDT 02/08/2025 6:18 AM EDT us Blake Saini MD LAB BLOOD BANK TEST ORDERABLES Final Result Performing Organization Address [facility]/ZIP Co de Phone Number [facility] [address] [place] [address], [place] [phone] * (ABNORMAL) Reticulocyte count (02/08/2025 5:54 AM EDT) Retic Ct Abs 0.020(L) 0.030 - 0.090 M/mcL LAB HEMETOLOGY METHOD 02/08/2025 8:19 AM EDT [facility] Retic Ct Pct 0.8 0.7 - 1.7 % LAB HEMETOLOGY METHOD 02/08/2025 8:19 AM EDT [facility] Immature Retic Fract 16.7(H) 2.3 - 15.9 % LAB HEMETOLOGY METHOD 02/08/2025 8:19 AM EDT [facility] Reticulocyte Hemoglobin 25.3(L) >29.0 pcg LAB HEMETOLOGY METHOD 02/08/2025 8:19 AM EDT [facility] Blood Venous blood specimen / Unknown Venipuncture / Unknown 02/08/2025 5:54 AM EDT 02/08/2025 6:18 AM EDT Pankaj Jin MD LAB BLOOD ORDERABLES Final Re sult Performing Organization Address City/[facility]/ZIP Co de Phone Number [facility] [address] [place] [address], [place] [phone] * Type and Screen (02/08/2025 5:54 AM EDT) ABO Group A 02/08/2025 1:01 PM EDT [facility] Rh Type Negative 02/08/2025 1:01 PM EDT [facility] Antibody Screen Positive 02/08/2025 1:01 PM EDT [facility] Blood Venous blood specimen / Unknown Venipuncture / Unknown 02/08/2025 5:54 AM EDT 02/08/2025 6:18 AM EDT us Blake Saini MD LAB BLOOD BANK TEST ORDERABLES Final Result Performing Organization Address [facility]/ZIP Co de Phone Number [facility] [address] [place] [address], [place] [phone] * (ABNORMAL) Haptoglobin (02/08/2025 5:54 AM EDT) [facility] Haptoglobin <8(L) 16 - 200 mg/dL LAB CHEMISTRY METHOD 02/08/2025 9:28 AM EDT [facility] Blood Venous blood specimen / Unknown Venipuncture / Unknown 02/08/2025 5:54 AM EDT 02/08/2025 6:18 AM EDT us Pankaj Jin MD LAB BLOOD ORDERABLES Final Re sult Performing Organization Address [facility]/ZIP Co de Phone Number [facility] [address] [place] [address], [place] [phone] * Folate (02/08/2025 5:54 AM EDT) [facility] Folate 3.8 2.8 - 17.0 ng/ml LAB CHEMISTRY METHOD 02/08/2025 9:28 AM EDT [facility] Blood Venous blood specimen / Unknown Venipuncture / Unknown 02/08/2025 5:54 AM EDT 02/08/2025 6:18 AM EDT us Pankaj Jin MD LAB BLOOD ORDERABLES Final Re sult Performing Organization Address City/[facility]/ZIP Co de Phone Number [facility] [address] [place] [address], [place] [phone] * (ABNORMAL) Ferritin (02/08/2025 5:54 AM EDT) [facility] Ferritin 2,977(H) 8 - 252 ng/mL LAB CHEMISTRY METHOD 02/08/2025 9:28 AM EDT [facility] Blood Venous blood specimen / Unknown Venipuncture / Unknown 02/08/2025 5:54 AM EDT 02/08/2025 6:18 AM EDT Pankaj Jin MD LAB BLOOD ORDERABLES Final Re sult [facility] [address] [place] [address], [place] [phone] * Vitamin B12 (02/08/2025 5:54 AM EDT) [facility] Vitamin B-12 643 250 - 900 pcg/mL LAB CHEMISTRY METHOD 02/08/2025 10:14 AM EDT [facility] Blood Venous blood specimen / Unknown Venipuncture / Unknown 02/08/2025 5:54 AM EDT 02/08/2025 6:18 AM EDT Pankaj Jin MD LAB BLOOD ORDERABLES Final Re sult Performing Organization Address [facility]/ZIP Co de Phone Number [facility] [address] [place] [address], [place] [phone] * (ABNORMAL) Comprehensive Metabolic Panel (CMP) (02/08/2025 5:54 AM EDT) [facility] Sodium 132(L) 133 - 145 mmol/L LAB CHEMISTRY METHOD 02/08/2025 7:08 AM EDT [facility] Potassium 4.4 3.5 - 5.5 mmol/L LAB CHEMISTRY METHOD 02/08/2025 7:08 AM EDT [facility] Comment:Hemolysis present Chloride 98 96 - 110 mmol/L LAB CHEMISTRY METHOD 02/08/2025 7:08 AM EDT [facility] CO2 28 21 - 32 mmol/L LAB CHEMISTRY METHOD 02/08/2025 7:08 AM [facility] Anion Gap 6 3 - 11 LAB CHEMISTRY METHOD 02/08/2025 7:08 AM [facility] Glucose 115(H) 70 - 100 mg/dL LAB CHEMISTRY METHOD 02/08/2025 7:08 AM [facility] BUN 9 5 - 25 mg/dL LAB CHEMISTRY METHOD 02/08/2025 7:08 AM [facility] Creatinine 0.51 0.50 - 1.10 mg/dL LAB CHEMISTRY METHOD 02/08/2025 7:08 AM [facility] eGFR 90 >=60 mL/min/1. 73m2 LAB CHEMISTRY METHOD 02/08/2025 7:08 AM [facility] Comment:Calculation based on the??Chronic Kidney Disease Epidemiology Collaboration (CKD-EPI) equation refit??without adjustment for race. BUN/Creatinine Ratio 17.6 LAB CHEMISTRY METHOD 02/08/2025 7:08 AM [facility] Calcium 8.4(L) 8.5 - 10.5 mg/dL LAB CHEMISTRY METHOD 02/08/2025 7:08 AM [facility] AST (SGOT) 42 10 - 42 unit/L LAB CHEMISTRY METHOD 02/08/2025 7:08 AM [facility] Comment:Hemolysis present ALT (SGPT) 14 10 - 60 unit/L LAB CHEMISTRY METHOD 02/08/2025 7:08 AM [facility] Alkaline Phosphatase 175(H) 42 - 121 unit/L LAB CHEMISTRY METHOD 02/08/2025 7:08 AM [facility] Comment:Icterus present Total Protein 7.2 6.0 - 8.0 g/dL LAB CHEMISTRY METHOD 02/08/2025 7:08 AM [facility] Albumin 3.1(L) 3.2 - 5.0 g/dL LAB CHEMISTRY METHOD 02/08/2025 7:08 AM EDT [facility] Total Bilirubin 3.6(H) 0.0 - 1.4 mg/dL LAB CHEMISTRY METHOD 02/08/2025 7:08 AM EDT [facility] Comment:Results verified by repeat testing Blood Venous blood specimen / Unknown Venipuncture / Unknown 02/08/2025 5:54 AM EDT 02/08/2025 6:18 AM EDT Blake Saini MD LAB BLOOD ORDERABLES Final Resu lt [facility] [address] [place] [address], [place] [phone] * External CT Report (02/08/2025) Anatomical Region Laterality Modality Computed Tomogra phy Provider [facility] IMG CT PROCEDURES Final Result * XR Chest 2 Views (02/06/2025 2:22 PM EDT) Anatomical Region Laterality Modality Body Radiographic Michelle ging 02/06/2025 3:20 PM EDT Impressions 02/06/2025 3:30 PM EDT Stable bibasilar subsegmental atelectasis. Other findings as described. -------- FINAL REPORT -------- Dictated By: Syeda Vaughan Dictated Date: 02/06/2025 15:20 ET Assigned Physician: Syeda Vaughan Reviewed and Electronically Signed By: Syeda Vaughan Signed Date: 02/06/2025 15:30 ET Workstation ID: [id number] Transcribed By: Self Edit Transcribed Date: 02/06/2025 15:20 ET Narrative 02/06/2025 3:30 PM EDT CHEST, TWO VIEWS HISTORY: ?? Follow-up left pleural effusion. TECHNIQUE: Frontal and lateral views of the chest. PRIOR: PA chest/right RIBS 01/23/2025. Chest x-ray 01/04/2024. FINDINGS: Bibasilar subsegmental atelectasis is unchanged. No pleural effusion is seen. No pneumothorax is seen. The cardiac diameter is upper limits of normal. No acute or aggressive appearing bony abnormalities are seen. ??There is degenerative change of the spine. There is vertebroplasty of L4, new since the 2023 study. Severe compression of T11 vertebral body is unchanged. Moderate compression fractures of T4 and T5 vertebral bodies are new since 2023. Other compression fractures are stable since 2023. There is advanced atherosclerosis. There are surgical clips in the mid right abdomen. Procedure Note Syeda Vaughan MD - 02/06/2025 CHEST, TWO VIEWS HISTORY: Follow-up left pleural effusion. TECHNIQUE: Frontal and lateral views of the chest. PRIOR: PA chest/right RIBS 01/23/2025. Chest x-ray 01/04/2024. FINDINGS: Bibasilar subsegmental atelectasis is unchanged. No pleural effusion is seen. No pneumothorax is seen. The cardiac diameter is upper limits of normal. No acute or aggressive appearing bony abnormalities are seen. There isdegenerative change of the spine. There is vertebroplasty of L4, new sincethe 2023 study. Severe compression of T11 vertebral body is unchanged.Moderate compression fractures of T4 and T5 vertebral bodies are new [id number]. Other compression fractures are stable since 2023. There is advancedatherosclerosis. There are surgical clips in the mid right abdomen. IMPRESSION: Stable bibasilar subsegmental atelectasis. Other findings as described. -------- FINAL REPORT -------- Dictated By: Syeda Vaughan Dictated Date: 02/06/2025 15:20 ET Assigned Physician: Syeda Vaughan Reviewed and Electronically Signed By: Syeda Vaughan Signed Date: 02/06/2025 15:30 ET Workstation ID: [id number] Transcribed By: Self Edit Transcribed Date: 02/06/2025 15:20 ET us Gino Hewitt MD IMG XR PROCEDURES Carole l Result * XR Ribs w Chest 3+ Views Left (01/23/2025 2:54 PM EST) Anatomical Region Laterality Modality Body Left Radiographic Michelle ging 01/23/2025 3:29 PM EST Impressions 01/23/2025 3:36 PM EST Possible tiny left pleural effusion. Bibasilar subsegmental atelectasis. No displaced rib fracture identified. -------- FINAL REPORT -------- Dictated By: Syeda Vaughan Dictated Date: 01/23/2025 15:29 ET Assigned Physician: Syeda Vaughan Reviewed and Electronically Signed By: Syeda Vaughan Signed Date: 01/23/2025 15:36 ET Workstation ID: [id number] Transcribed By: Self Edit Transcribed Date: 01/23/2025 15:29 ET Narrative 01/23/2025 3:36 PM EST CHEST, FRONTAL VIEW LEFT RIBS, 2 VIEWS HISTORY: ??Posterior left lower rib pain. Fell one month ago. Prior study: Chest x-ray 01/04/2024. CT abdomen 02/24/2024. FINDINGS: There is a suboptimal degree of inspiration. There is bibasilar linear subsegmental atelectasis, new since the previous study. There is new blunting of the left costophrenic angle. No pneumothorax is seen. The cardiomediastinal silhouette is within normal limits. No acute or aggressive appearing bony abnormalities are seen. There is degenerative change of the spine. There is vertebroplasty of a lumbar vertebral body. Oblique views of the left ribs demonstrate no displaced fractures. There is advanced atherosclerosis. There are surgical clips in the lower right abdomen. Procedure Note Syeda Vaughan MD - 01/23/2025 CHEST, FRONTAL VIEW LEFT RIBS, 2 VIEWS HISTORY: Posterior left lower rib pain. Fell one month ago. Prior study: Chest x-ray 01/04/2024. CT abdomen 02/24/2024. FINDINGS: There is a suboptimal degree of inspiration. There is bibasilar linear subsegmental atelectasis, new since the previousstudy. There is new blunting of the left costophrenic angle. No pneumothorax is seen. The cardiomediastinal silhouette is within normallimits. No acute or aggressive appearing bony abnormalities are seen. There isdegenerative change of the spine. There is vertebroplasty of a lumbarvertebral body. Oblique views of the left ribs demonstrate no displaced fractures. There is advanced atherosclerosis. There are surgical clips in the lower right abdomen. IMPRESSION: Possible tiny left pleural effusion. Bibasilar subsegmental atelectasis. No displaced rib fracture identified. -------- FINAL REPORT -------- Dictated By: Syeda Vaughan Dictated Date: 01/23/2025 15:29 ET Assigned Physician: Syeda Vaughan Reviewed and Electronically Signed By: Syeda Vaughan Signed Date: 01/23/2025 15:36 ET Workstation ID: [id number] Transcribed By: Self Edit Transcribed Date: 01/23/2025 15:29 ET Gino Hewitt MD IMG XR PROCEDURES Carole l Result * External Xray Report (01/23/2025) Anatomical Region Laterality Modality Radiographic Michelle ging us Provider [facility] IMG XR PROCEDURES Final Result * DXA BONE DENSITY STUDY 1+ SITS AXIAL SKEL (04/10/2024 1:44 PM EDT) Anatomical Region Laterality Modality Bone Densitometr y 04/06/2023 1:33 PM EDT Narrative 04/10/2024 2:04 PM EDT BONE DENSITY ? Left Wrist T-score is -2.7 ?? (SD relative to 20-29 y/o adult) Z-score is not available. (SD relative to age matched peers) This is consistent with osteoporosis by criteria defined by the WHO. Left Hip T-score is -2.8 Z-score is -0.3 This is consistent with osteoporosis by criteria defined by the WHO. Impression: Based on the World Health Organization criteria, Sophie Mishra should be classified as having osteoporosis. The [facility] Department of Internal Medicine recommends using National Osteoporosis Foundation (NOF) guidelines in treatment decisions related to osteoporosis. NOF guidelines suggest considering treatment for postmenopausal women and men aged 50 or older presenting with the following: History of hip or vertebral fracture. T-score less than or equal to -2.5 (DXA) at the femoral neck, total hip, or spine, after appropriate evaluation to exclude secondary causes. Low bone mass (T-score between -1.0 and -2.5 at the femoral neck or spine) AND a 10-year probability of a hip fracture greater than or equal to 3% OR a 10-year probability of a major osteoporosis-related fracture greater than or equal to 20% based on the [place]-adapted WHO algorithm Please note that all treatment decisions require clinical judgment and consideration of individual patient factors, including patient preferences, co-morbidities, previous drug use, risk factors not captured in the FRAX model (e.g., frailty, falls, vitamin D deficiency, increased bone turnover, interval significant decline in bone density) and possible under- or over-estimation of fracture risk by FRAX. Procedure Note Live Schwarz MD - 07/17/2024 BONE DENSITY Left Wrist T-score is -2.7 (SD relative to 20-29 y/o adult) Z-score is not available. (SD relative to age matched peers) This is consistent with osteoporosis by criteria defined by the WHO. Left Hip T-score is -2.8 Z-score is -0.3 This is consistent with osteoporosis by criteria defined by the WHO. Impression: Based on the World Health Organization criteria, Sophie Mishra shouldbe classified as having osteoporosis. The [facility] Department of Internal Medicine recommendsusing National Osteoporosis Foundation (NOF) guidelines in treatmentdecisions related to osteoporosis. NOF guidelines suggest consideringtreatment for postmenopausal women and men aged 50 or older presentingwith the following: History of hip or vertebral fracture. T-score less than or equal to -2.5 (DXA) at the femoral neck, total hip,or spine, after appropriate evaluation to exclude secondary causes. Low bone mass (T-score between -1.0 and -2.5 at the femoral neck or spine)AND a 10-year probability of a hip fracture greater than or equal to 3% ORa 10-year probability of a major osteoporosis-related fracture greaterthan or equal to 20% based on the [place]-adapted WHO algorithm Please note that all treatment decisions require clinical judgment andconsideration of individual patient factors, including patientpreferences, co-morbidities, previous drug use, risk factors not capturedin the FRAX model (e.g., frailty, falls, vitamin D deficiency, increasedbone turnover, interval significant decline in bone density) and possibleunder- or over-estimation of fracture risk by FRAX. 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 Expl anation Health Care Decision (hx) 02/13/2023 AD SAUCEDO DIRECTIVE Health Care Decision (hx) 02/13/2023 AD SAUCEDO DIRECTIVE Health Care Decision (hx) 02/13/2023 AD SAUCEDO DIRECTIVE Health Care Decision (hx) 02/13/2023 AD SAUCEDO DIRECTIVE Health Care Decision (hx) 02/13/2023 AD SAUCEDO DIRECTIVE Health Care Decision (hx) 02/13/2023 AD SAUCEDO DIRECTIVE Health Care Decision (hx) 02/13/2023 AD SAUCEDO DIRECTIVE Health Care Decision (hx) 02/13/2023 AD SAUCEDO DIRECTIVE Health Care Decision (hx) 02/13/2023 AD SAUCEDO DIRECTIVE Health Care Decision (hx) 02/13/2023 AD SAUCEDO DIRECTIVE Health Care Decision (hx) 02/13/2023 AD SAUCEDO DIRECTIVE Health Care Decision (hx) 02/13/2023 AD SAUCEDO DIRECTIVE Health Care Decision (hx) 02/13/2023 AD SAUCEDO DIRECTIVE Health Care Decision (hx) 02/13/2023 AD SAUCEDO DIRECTIVE Health Care Decision (hx) 02/13/2023 AD SAUCEDO DIRECTIVE Health Care Decision (hx) 02/13/2023 AD SAUCEDO DIRECTIVE Health Care Decision (hx) 02/13/2023 AD SAUCEDO DIRECTIVE Health Care Decision (hx) 02/13/2023 AD SAUCEDO DIRECTIVE Health Care Decision (hx) 02/13/2023 AD SAUCEDO DIRECTIVE Health Care Decision (hx) 02/13/2023 AD SAUCEDO DIRECTIVE Health Care Decision (hx) 02/13/2023 AD SAUCEDO DIRECTIVE Health Care Decision (hx) 02/13/2023 AD SAUCEDO DIRECTIVE * Full Code - Default (Latest Code Status on File) Date Activated Date Inactivated Comments 02/08/2025 8:38 AM 02/12/2025 5:04 PM This is orde r is used when code status has not been discussed with the patient, or code status is otherwise unknown/unconfirmed To update the patient's code status, place a code status order. Do not modify or discontinue any currently active code status orders. Healthcare Agents on File Name Relationship Healthcare Agent Relationship Communication Stepan Mishra Health Care Agent [email or web address] Teams Pressure Controller Relationship Specialty Start Date End Date Gino Hewitt MD [address] [place] [address] PCP - General 03/17/23
--- OUTSIDE RECORDS SUMMARY | 2025-02-28 07:22 | XMS_ITS | Clinical Summary ---
Author Organization [facility] Address [address] [place] [address] Phone Care Team Providers Care Cert Pharmacy Tech Name Role Phone Marcelina JACOBSEN, Arnie Echevarria Primary Care Provider [phone] [facility] Unavailable [phone] Reason for Visit and Chief Complaint - Phone Note Plan of Treatment Future Appointments Date Time Location Provi lelo Post Op Visit/Follow Up 03/26/2025 9:40AM [facility] Kulwinder Pickett MD Last Documented On 10:29AM ; [facility] Assessments Includes: Assessments from this encounter No Assessments Recorded Medical Equipment - Implanted Devices Includes: Current Devices No Medical Equipment Recorded Medications Administered Includes: Administered Medications from this encounter No Administered Medications Recorded Results Includes: Results discussed during this encounter No Results Recorded For Specified Dates History of Present Illness Includes: History of Present Illness from this encounter No History of Present Illness Recorded Social History No Social History Recorded - Smoking Status Unknown Medical History Includes: Medical History addressed during this encounter No Medical History Recorded Family History Includes: Family History addressed during this encounter No Family History Recorded Review of Systems Includes: Review of Systems from this encounter No Review of Systems Recorded Mental Status Includes: Mental Status from this encounter No Mental Status Recorded Functional Status Includes: Functional Status from this encounter No Functional Status Recorded Physical Exam Includes: Physical Exam from this encounter No Physical Exam Recorded Encounters Encounter Provider Location Date Check-In Time Check-Out Time Diagnosis - Phone Note Live Mcgraw PA-C 03/08/2023 3:45PM 11:59PM Insurance Includes: Active Insurance Policies Plan Name Member ID Group # Subscriber Relationship Effect cathy Dates 1 - [facility] ADV [id number] Sophie Mishra Self 2 - [facility] [id number] Sophie Mishra Se lf Clinical Notes Includes: Clinical Notes from this encounter * Progress note Date Encounter Last Documented by 03/08/2023 - Phone Note Last documented on 03/08/2023; 3:48 PM, Live Mcgraw PA-C; [facility] Notes Received a message to return call to patient's son and healthcare proxy, Andre ([phone]). Spoke with Andre at 3:30 PM. He stated that his mother is currently at a rehab facility and she missed her appointment in our office on March 01 due to a new diagnosis of COVID. He states that he can bring her to the office next Wednesday, March 15. He reports that she is generally feeling well and overall feels better than when she was in the hospital. All questions answered to satisfaction. It was requested that Andre bring a log of the daily outputs from his mother's drain to her appointment. Andre informed to call office with any further questions or if his mother develops any new or worsening symptoms.
--- OUTSIDE RECORDS SUMMARY | 2025-02-28 07:22 | XMS_ITS | Clinical Summary ---
Author Organization [facility] Address [address] [place] [address] Phone Care Team Providers Care Candy Decorator Name Role Phone Marcelina JACOBSEN, Arnie Echevarria Primary Care Provider [phone] [facility] Unavailable [phone] Reason for Visit and Chief Complaint - Phone Note Plan of Treatment Future Appointments Date Time Location Provi lelo Post Op Visit/Follow Up 03/26/2025 9:40AM [facility] Kulwinder Pickett MD Last Documented On 10:29AM ; [facility] Assessments Includes: Assessments from this encounter No [...] Time Check-Out Time Diagnosis - Phone Note Liev Mcgraw PA-C 03/16/2023 8:26AM 11:59PM Insurance Includes: Active Insurance Policies Plan Name Member ID Group # Subscriber Relationship Effect cathy Dates 1 - [facility] ADV [id number] Sophie Mishra Self 2 - [facility] [id number] Sophie Mishra Se lf Clinical Notes Includes: Clinical Notes from this encounter * Progress note Date Encounter Last Documented by 03/16/2023 - Phone Note Last documented on 03/16/2023; 8:31 AM, Live Mcgraw PA-C; [facility] Notes Reviewed patient's lab work which was performed yesterday. ESR is down to 19 from 56 on February 14 and CRP is down to 1.17 from 14.4 on February 15. Both of these indicate improvement/resolution of left hip infection, particularly in the setting of improved symptoms yesterday compared to when the patient's surgery was performed. Called patient's son and healthcare proxy, Andre ([phone]) at 8:25 AM. Updated Andre with the lab work findings. All questions answered to satisfaction.
--- OUTSIDE RECORDS SUMMARY | 2025-02-28 07:22 | XMS_ITS ---
Author Organization [facility] Address [address] [place] [address] Phone Care Team Providers Care Induction Furnace Operator Name Role Phone Marcelina JACOBSEN, Arnie Echevarria Primary Care Provider [phone] [facility] Unavailable [phone] Plan of Treatment Future Appointments Date Time Location Provi lelo Post Op Visit/Follow Up 03/26/2025 9:40AM [facility] Kulwinder Pickett MD Last Documented On 5 10:29AM ; [facility], Assessments Includes: Assessments for all patient encounters No Assessments Recorded Medical Equipment - Implanted Devices Includes: Current and historical Devices No Medical Equipment Recorded Medications Administered Includes: Administered Medications in patient's chart No Administered Medications Recorded Results Includes: Results from 02/29/2024 through 02/28/2025 No Results Recorded For Specified Dates History of Present Illness History of Present Illness not supported for this document type No History of Present Illness Recorded Social History No Social History Recorded - Smoking Status Unknown Procedures and Surgical History Includes: Procedures from 02/29/2024 through 02/28/2025 Procedures Code Diagnosis Performing Provider Service Location Service Date Treat Thigh Fracture (Right) 45459 Displaced intertrochanteric fracture of right femur, init Kulwinder Pickett MD [facility] 02/08/2025 Last Documented On 5 11:43AM ; [facility] Medical History Includes: Medical History in patient's chart No Medical History Recorded Family History Includes: Family History in patient's chart No Family History Recorded Review of Systems Review of Systems not supported for this document type No Review of Systems Recorded Mental Status No Mental Status Recorded Functional Status No Functional Status Recorded Physical Exam Physical Exam not supported for this document type No Physical Exam Recorded Encounters Includes: Encounters from 02/29/2024 through 02/28/2025 Encounter Provider Location Date Check-In Time Check-Out Time Diagnosis Post Op Visit/Follow Up Mary GUTIERREZ [facility], 02/23/20 10:20AM 10:29AM Insurance Includes: Active Insurance Policies Plan Name Member ID Group # Subscriber Relationship Effect cathy Dates 1 - [facility] ADV [id number] Sophie Mishra Self 2 - [facility] [id number] Sophie Mishra Se lf Clinical Notes Includes: Signed Clinical Notes starting from 11/08/2022 * Progress note Date Encounter Last Documented by 02/22/2025 Post Op Visit/Follow Up Last doc umented on 02/22/2025; 10:41 AM, Mary GUTIERREZ; [facility], Chief Complaint CC: f/u r hip IT fracture DOS: right hip long gamma nail orif Dr Pickett 02/06/25 HPI: This is a 89-year-old female status post a fall resulting in a right hip IT fracture. The patient underwent right hip long gamma nail by Dr. Pickett on 02/08/2025. The patient has been at rehab. She is overall doing well. She denies any paresthesias. Physical exam General AOx3 Musculoskeletal on exam of the patient's right lower extremity there are 3 surgical incisions well-approximated with mason. There is mild edema appreciated. No erythema or fluctuance. Mild edema through knee. She is mildly tender to palpation surrounding the area. The mason were removed without incidence. Steri-Strips were placed. The patient was unable to straight leg raise d/t weakness. She was able to flex her knee to approximately 30 degrees. She had full range of motion throughout the ankle. She was neurovascular intact, calf nontender with palpation. Foot was well-perfused. Imaging X-rays of the rightt hip and femur reveal a right long gamma nail. Hardware intact and fracture has alignment. Impression: right hip fracture status post right long gamma nail ORIF Plan: The patient will continue working with PT and OT. Weightbearing as tolerated to the right lower extremity. Patient may shower. Steri-Strips will fall off on their own. The patient will continue aspirin 81 mg p.o. twice daily for DVT prophylaxis for another 4 weeks. The patient will follow-up in 1 month with repeat x-ray. Plan StartCited - Displaced intertrochanteric fracture of right femur, init Follow Up/Appointment: 1 Month EndCited
--- OUTSIDE RECORDS SUMMARY | 2025-02-28 07:22 | XMS_ITS | Clinical Summary ---
Author Organization [facility] Address [address] [place] [address] Phone Care Team Providers Care Polystyrene Molding Machine Tender Name Role Phone Marcelina JACOBSEN, Arnie Echevarria Primary Care Provider [phone] [facility] Un[facility] [phone] Reason for Visit and Chief Complaint Post Op Visit/Follow Up Plan of Treatment Pending Tests Order Diagnosis Results Due Ordering P grecia Follow Up - Appointment 2 Months Staphylococcal arthritis, right hip 03/15/23 Live Mcgraw PA-C Last Documented On 3 10:07AM ; [facility], In House X-Rays - X-Rays Hip Unilateral, right, 2-3 views ([id number]) Staphylococcal arthritis, right hip 03/17/23 Live Mcgraw PA-C Last Documented On 3 10:07AM ; [facility], Future Appointments Date Time Location Provi lelo Post Op Visit/Follow Up 03/26/2025 9:40AM [facility]oped[facility] Kulwinder Pickett MD Last Documented On 5 10:29AM ; [facility], Assessments Includes: Assessments from this encounter No Assessments Recorded Medical Equipment - Implanted Devices Includes: Current Devices No Medical Equipment Recorded Medications Administered Includes: Administered Medications from this encounter No Administered Medications Recorded Vital Signs Includes: Vital Signs from this encounter Vital Name 03/15/2023 09:17A Blood Pressure Sitting (mmHg) 157/82 Pulse Rate-Sitting (bpm) 95 Temp-Temporal 97.2 Height (in) 62 Weight (lb) 116 Body Mass Index 21.2 Body Surface Area 1.5 Oxygen Saturation (%) 98 Last Documented: On 03/15/2023 9:18AM ; [facility], Results Includes: Results discussed during this encounter [...] Exam Includes: Physical Exam from this encounter Encounters Encounter Provider Location Date Check-In Time Check-Out Time Diagnosis Post Op Visit/Follow Up Live Mcgraw PA-C [facility] 03/15/20 9:00AM 10:12AM Insurance Includes: Active Insurance Policies Plan Name Member ID Group # Subscriber Relationship Effect cathy Dates 1 - [facility] ADV [id number] Sophie Mishra Self 2 - [facility] [id number] Sophie Curtisu Se Clinical Notes Includes: Clinical Notes from this encounter * Progress note Date Encounter Last Documented by 03/15/2023 Post Op Visit/Follow Up Last doc umented on 03/15/2023; 10:07 AM, Live Mcgraw PA-C; [facility] Physical Findings - Vitals taken 03/15/2023 09:17 am BP-Sitting 157/82 mmHg Pulse Rate-Sitting 95 bpm Temp-Temporal 97.2 F Height 62 in Weight 116 lbs Body Mass Index 21.2 kg/m2 Body Surface Area 1.5 m2 Oxygen Saturation 98 % Plan StartCited - Staphylococcal arthritis, right hip Follow Up/Appointment: 2 Months In House X-Rays/X-Rays: Hip Unilateral, right, 2-3 views ([id number]) EndCited Notes REASON FOR VISIT Hospital follow-up for right hip septic arthritis DATE OF INJURY 02-08-23 HISTORY OF PRESENT ILLNESS Patient is a 87-year-old female. On 02-08-23, patient was shoveling after a snowstorm. On 02-10-23, patient developed pain extending from her right hip to her right knee. Patient was seen by her PCP who felt that it was a musculoskeletal strain. On 02-13-23, patient presented to [facility] ED for persistent pain. MRI of the right hip demonstrated Findings concerning for diffuse periarticular myositis with multiple, probably communicating, intramuscular abscesses as well as iliopsoas and ischial bursitis, of infectious/inflammatory etiology. Recommend clinical correlation. Moderate right hip joint effusion with mild synovitis without periarticular erosions. While this could be reactive, the possibility of early septic arthritis cannot be entirely excluded. Recommend clinical correlation. Suspicious fluid signal within the right sacroiliac joint, not well appreciated on other sequences. Recommend clinical correlation and further evaluation with dedicated sacroiliac joint MRI, as clinically indicated. Suspicious full-thickness tear of the tendinous attachments of the semimembranosus and conjoint tendons onto the ischial tuberosity. On 02-14-23, patient underwent incision and drainage of right hip with drain placement by Dr. Banegas. OR cultures demonstrated methicillin sensitive staph aureus. Patient was discharged on IV cefazolin and PO Keflex. Today, patient states that she is generally doing well. States that she continues to have pain in her right hip particularly when she is lying on it however this is improved from prior. Reports that she was discharged from rehab a few days ago. States that she has completed her IV antibiotic therapy and is currently on oral antibiotics. Denies fever, chills, numbness, paresthesias. PHYSICAL EXAM General: Alert and cooperative, lying comfortably on exam table, in no acute distress, accompanied by her son Andre Musculoskeletal: Right lower extremity- staple line clean/dry/intact, former drain site appreciated at the distal end of the incision appears to be well-healed, no deformity/ecchymosis/erythema/drainage appreciated, staple line is nontender to palpation, fires EHL/FHL, dorsiflexion/plantarflexion intact, range of motion of hip intact with mild discomfort, sensation intact distally, appears well-perfused IMAGING 03-15-23: X-ray of right hip demonstrates no acutes changes from prior imaging on 3-17-23 ASSESSMENT Patient is 4 weeks s/p incision and drainage of right hip with drain placement for septic arthritis. Patient is progressing well. Patient has a drain in her abdomen which was placed by general surgery. Spoke with general surgery team who stated that she has follow-up in 2 days and the drain will be evaluated at that time. PLAN - Weightbearing: As tolerated right lower extremity with walker protection - Activity: As tolerated - Therapy: N/A - Dressing/DME: Norman were removed and wounds were covered with steristrips which will fall off on their own; patient may shower, allowing soap and water to passively wash over wounds (do not soak) without scrubbing, and be sure to pat the incision dry - Pain control: Elevate affected extremity; apply ice to affected area, 20 minutes on and 20 minutes off with a barrier between the ice and the skin; over the counter pain medication such as Tylenol or NSAID's as medically tolerated - Misc: Prescription provided for patient to get lab work done for ESR/CRP with results sent to orthopedic clinic - Follow up: 2 months - X-ray at follow up: Right hip, 2 views Above, including any imaging, discussed with and agreed to by Dr. Banegas.
--- OUTSIDE RECORDS SUMMARY | 2025-02-28 07:22 | XMS_ITS | Encounter Summary ---
Author Organization [facility] Address [address] [place] [address] Care Team Providers Care Cell Stripper Name Role Phone Gino Hewitt MD Primary Care Provider Reason for Visit * Reason Onset Date Comments Cough 10/05/2024 Encounter Details Date Type Department Care Team (Late st Contact Info) Description 10/05/2024 Nurse Triage Adult Medicine [facility] [address], [place] [phone] Gino Hewitt MD [address], [place] Cough Social History Tobacco Use Types Packs/Day Years Used Date Smoking Tobacco: Former Smokeless Tobacco: Never Alcohol Use Standard Drinks/Week Comments Never 0 (1 standard drink = 0.6 oz pur e alcohol) Comments Unknown Sex and Gender Information Value Date Recorded Sex Assigned at Not on file Legal Sex Female 4:34 PM EST Gender Identity Not on file Sexual Orientation Not on file documented as of this encounter Progress Notes * Maritza Landry LPN - 10/09/2024 10:02 AM EST Pt called and she did have an appt with Dr. Hewitt to review the situation with her esophagus,,, she does have it dilated every so often and son thinks she may need that soon. Booked for tomorrow. Answer Assessment - Initial Assessment Questions 1. ONSET: When did the cough begin? 2 weeks 2. SEVERITY: How bad is the cough today? No longer 3. SPUTUM: Describe the color of your sputum (e.g., none, dry cough; clear, white, yellow, green) clear 4. HEMOPTYSIS: Are you coughing up any blood? If Yes, ask: How much? (e.g., flecks, streaks, tablespoons, etc.) none 5. DIFFICULTY BREATHING: Are you having difficulty breathing? If Yes, ask: How bad is it? (e.g., mild, moderate, severe) - MILD: No SOB at rest, mild SOB with walking, speaks normally in sentences, can lie down, no retractions, pulse < 100. - MODERATE: SOB at rest, SOB with minimal exertion and prefers to sit, cannot lie down flat, speaksin phrases, mild retractions, audible wheezing, pulse 100-120. - SEVERE: Very SOB at rest, speaks in single words, struggling to breathe, sitting hunched forward,retractions, pulse > 120. Not sob 6. FEVER: Do you have a fever? If Yes, ask: What is your temperature, how was it measured, and when did it start? no 7. CARDIAC HISTORY: Do you have any history of heart disease? (e.g., heart attack, congestive heart failure) no 8. LUNG HISTORY: Do you have any history of lung disease? (e.g., pulmonary embolus, asthma, emphysema) Esophagus opened up 9. PE RISK FACTORS: Do you have a history of blood clots? (or: recent major surgery, recent prolonged travel, bedridden) no 10. OTHER SYMPTOMS: Do you have any other symptoms? (e.g., runny nose, wheezing, chest pain) no 11. : Is there any chance you are ? When was your last menstrual period? no 12. TRAVEL: Have you traveled out of the country in the last month? (e.g., travel history, exposures) no Protocols used: Cough - Acute Vbeanqceyb-A-PB * Malvin Garrido RN - 10/05/2024 4:02 PM EST Called pt left vm to return call * Sanjana Castano - 10/05/2024 3:37 PM EST Patient call requires triage: Symptoms patient is presenting: increased mucous production no cough or fever. ? allergies vs needing esophageal procedure again PATIENT HAD APPOINTMENT ON 10/10/[address] HEWITT. How long has patient had these symptoms?: For ALL patients calling to schedule any appointment (routine, sick visit, follow up, consult, etc.) in the outpatient setting please ask the following questions: Do you have fever of higher than 101, sore throat with difficulty swallowing or severe shortness ofbreath? If YES to any of these above symptoms, send a message to triage and do not book. Red dot. If no, an audio or video visit should be booked. Have you had close contact with someone with Coronavirus in the last 14 days? Have you traveled abroad? Have you traveled recently to another state outside of [place], [place], [place], [place], [place], [place], [place]? o If yes, did you quarantine for 14 days or have a negative covid test? If yes to any of the above, patient is not to be scheduled in office until after 14 day quarantine or negative covid test. If pain or injury related was it due to an accident at work or from a motor vehicle accident? If yes, date of accident/Injury: If yes, gather 3rd green party insurance information Third Democrat Information: PCP: Gino Hewitt MD Payor: / No coverage found. documented in this encounter Plan of Treatment Not on file documented as of this encounter Visit Diagnoses Not on filedocumented in this encounter Care Teams Cell Stripper Relationship Specialty Start Date End Date Gino Hewitt MD [address] [place] [address] PCP - General 03/17/23 documented as of this encounter
--- OUTSIDE RECORDS SUMMARY | 2025-02-28 07:22 | XMS_ITS ---
Care Plan - [facility], Created on: February 28, 2025 Sophie Mishra : 1935 Sex: Female Author Organization [facility] Address [address] [place] [address] Phone Care Team Providers Care Full Stack Net Developer Name Role Phone Marcelina JACOBSEN, Arnie Echevarria Primary Care Provider [phone] [facility], Unavailable [phone]
--- OUTSIDE RECORDS SUMMARY | 2025-02-28 07:22 | XMS_ITS | Clinical Summary ---
Author Organization [facility] Address [address] [id number] Care Team Providers Care Farmworker Turkey Farm Name Role Phone Gino Hewitt Primary Care Provid er Allergies No known active allergies Medications Medication Sig Dispensed Refills Start Date End Date Status albuterol 108 (90 Base) MCG/ACT inhaler 0 03/23/2023 Act cathy Docusate Sodium (DSS) 100 MG CAPS Take 100 mg by mouth. 0 Active Sennosides 8.6 MG CAPS Take by mouth. 0 Active omeprazole (PriLOSEC) 20 MG capsule Take 1 capsule (20 mg total) by mouth daily. 0 Active vitamin D3 (cholecalciferol) 25 MCG (1000 UT) tablet Take 1 tablet (25 mcg total) by mouth daily. 0 Active Mrvdyfv-Nheynxpvgf-Fbz bethea D (Calcium Gummies) 250-100-500 MG-MG-UNIT CHEW Chew by mouth. 0 Activ e metoprolol succinate (TOPROL-XL) 24 hr tablet 100 mg Take by mouth daily. 0 Active cyclobenzaprine (FLEXERIL) 10 MG tablet Take 1 tablet (10 mg total) by mouth 3 (three) times a day as needed for muscle spasms. 0 Active hydrOXYzine (ATARAX) 25 MG tablet Take 1 tablet (25 mg total) by mouth. 0 Active Active Problems No known active problems Social History Tobacco Use Types Packs/Day Years Used Date Smoking Tobacco: Never Smokeless Tobacco: Never Tobacco Cessation:Counseling Given: Not Answered Alcohol Use Standard Drinks/Week Comments Never 0 (1 standard drink = 0.6 oz pur e alcohol) Sex and Gender Information Value Date Recorded Sex Assigned at Female 04/22/2023 9:27 AM EDT Gender Identity Female 04/22/2023 9:27 AM EDT Sexual Orientation Straight 04/22/2023 9: 27 AM EDT Job Start Date Occupation Industry Not on file Not on file Not on file Last Filed Vital Signs Vital Sign Reading Time Taken Comments Blood Pressure 130/55 04/17/2024 3:15 PM EDT Pulse 83 04/17/2024 3:15 PM EDT Temperature 36.3 ??C (97.4 ??F) 04/17/2024 3:15 PM ED T Respiratory Rate 16 04/17/2024 3:15 PM EDT Oxygen Saturation 99% 04/17/2024 8:30 AM EDT Inhaled Oxygen Concentration - - Weight 48.4 kg (106 lb 12.8 oz) 024 11:11 AM EDT Height - - Body Mass Index - - Plan of Treatment Health Maintenance Due Date Last Done Comments Depression Screening 1949 Preventative Health Evaluation 1955 Shingrix-Zoster Vaccine (1 o f 2) 1987 Fall Risk Assessment 2002 Osteoporosis Screening (DEXA Scan) 2002 RSV Adult > 60+ Yrs or (1 - 1-dose 75+ series) 2012 COVID-19 Vaccine (3 - 2023-2 5 season) 2024 03/29/2021, 03/08/2021 Influenza Vaccine (#1) 2024 DTap / Tdap / Td (2 - Td or Tdap) 04/06/2033 04/06/2023 Pneumococcal Vaccine Completed 04/06/2023 Hepatitis B Vaccines Aged Out No long er eligible based on patient's age to complete this topic RSV Ped < 20 months Aged Out No longe r eligible based on patient's age to complete this topic Care Teams Farmworker Turkey Farm Relationship Specialty Start Date End Date Gino Hewitt MBBS [address], [place] [id number] PCP - General Internal Medicine 03/17/23
--- OUTSIDE RECORDS SUMMARY | 2025-02-28 07:22 | XMS_ITS | Clinical Summary ---
Author Organization [facility] Address [address] [place] [address] Phone Care Team Providers Care Railroad Firer Name Role Phone Marcelina JACOBSEN, Arnie Echevarria Primary Care Provider [phone] [facility] Un[facility] [phone] Reason for Visit and Chief Complaint Post Op Visit/Follow Up Plan of Treatment Pending Tests Order Diagnosis Results Due Ordering P rovider Follow Up - Appointment 1 Month Displaced intertrochanteric fracture of right femur, init 02/22/25 Mary GUTIERREZ Last Documented On 5 10:40AM ; [facility] Future Appointments Date Time Location Provi lelo Post Op Visit/Follow Up 03/26/2025 9:40AM [facility] Kulwinder Pickett MD Last Documented On 5 10:29AM ; [facility] Assessments Includes: Assessments from this encounter [...] Diagnosis Post Op Visit/Follow Up Mary GUTIERREZ [facility], 02/23/20 10:20AM 10:29AM Insurance Includes: Active Insurance Policies Plan Name Member ID Group # Subscriber Relationship Effect cathy Dates 1 - [facility] ADV [id number] Sophie Mishra Self 2 - [facility] [id number] Sophie Mishra Se lf Clinical Notes Includes: Clinical Notes from this encounter * Progress note Date Encounter Last Documented by 02/22/2025 Post Op Visit/Follow Up Last doc umented on 02/22/2025; 10:41 AM, Mary GUTIERREZ; [facility] Chief Complaint CC: f/u r hip IT [...]
--- OUTSIDE RECORDS SUMMARY | 2025-02-28 07:22 | XMS_ITS | Clinical Summary ---
Author Organization [facility] Address [address] [place] [address] Phone Care Team Providers Care Service Order Taker Name Role Phone Marcelina JACOBSEN, Arnie Echevarria Primary Care Provider [phone] [facility] Un[facility] [phone] Reason for Visit and Chief Complaint Established Patient Plan of Treatment Pending Tests Order Diagnosis Results Due Ordering P grecia Follow Up - Appointment PRN Staphylo coccal arthritis, right hip 05/13/23 Lito Banegas MD Last Documented On 8:45AM ; [facility] Future Appointments Date Time Location Provi lelo Post Op Visit/Follow Up 03/26/2025 9:40AM [facility] Pick[facility] Last Documented On 10:29AM ; [facility], Assessments Includes: Assessments from this encounter No Assessments Recorded Medical Equipment - Implanted Devices Includes: Current Devices No Medical Equipment Recorded Medications Administered Includes: Administered Medications from this encounter No Administered Medications Recorded Vital Signs Includes: Vital Signs from this encounter Vital Name 05/13/2023 08:28A Blood Pressure Sitting (mmHg) 132/63 Pulse Rate-Sitting (bpm) 85 Temp-Temporal 97.5 Height (in) 62 Weight (lb) 115 Body Mass Index 21 Body Surface Area 1.5 Oxygen Saturation (%) 98 Last Documented: On 05/13/2023 8:28AM ; [facility] Results Includes: Results discussed during this encounter [...] Location Date Check-In Time Check-Out Time Diagnosis Established Patient Lito Banegas MD [facility], 05/13/20 8:00AM 9:05AM Insurance Includes: Active Insurance Policies Plan Name Member ID Group # Subscriber Relationship Effect cathy Dates 1 - [facility] ADV [id number] Sophie Hermilohenryu Self 2 - [facility] [id number] Sophie Evanggeliou Se lf Clinical Notes Includes: Clinical Notes from this encounter * Progress note Date Encounter Last Documented by 05/13/2023 Established Patient Orlando tobar on 05/13/2023; 8:45 AM, Lito Banegas MD; [facility], Physical Findings - Vitals taken 05/13/2023 08:28 am BP-Sitting 132/63 mmHg Pulse Rate-Sitting 85 bpm Temp-Temporal 97.5 F Height 62 in Weight 115 lbs Body Mass Index 21 kg/m2 Body Surface Area 1.5 m2 Oxygen Saturation 98 % Chief complaint: Follow-up incision and drainage right hip for septic arthritis History of Present Illness: This is an 87-year-old woman for whom I performed incision and drainage of her right hip for septic arthritis on 02/14/2023. She was last seen on 03/16/2023. At that time her CRP had improved from 14.4 to 17 and her ESR had improved from 56 to 19. She presents with her son today. She has no complaints. She reports that she has minimal residual symptoms. She is ambulating with a cane. She feels that she is getting back to her normal activities. Physical exam: The patient is walking without a limp using a cane. Her right hip wound is nicely healed. It is soft and supple without redness, induration, drainage, or sinus tract. She has painless motion of her hip. Imaging: Radiographs of the right hip taken today show no osteolysis. There is no joint space narrowing. There is no periosteal reaction. Impression: Status post incision and drainage right hip for septic arthritis. Plan: The patient may continue to increase her activity to tolerance and return to the office as needed. Plan StartCited - Staphylococcal arthritis, right hip Follow Up/Appointment: PRN EndCited
--- OUTSIDE RECORDS SUMMARY | 2025-02-28 07:22 | XMS_ITS | Encounter Summary ---
Author Organization [facility] Address [address] [place] [address] Care Team Providers Care Tool Room Supervisor Name Role Phone Gino Hewitt MD Primary Care Provider Encounter Details Date Type Department Care Team (Latest Contact Info) Description 02/22/2025 7:43 AM EDT - 02/22/2025 11:59 PM EDT Hospital Encounter [facility] Ortho Xray [address] [place] [address] Pain Discharge Disposition: Home or Self Care Social History Tobacco Use Types Packs/Day Years [...] care for your loved ones. For example, childcare attendant or elderly care for an older adult? [...] on file documented as of this encounter Medications at Time of Discharge albuterol HFA (PROAIR HFA ; PROVENTIL HFA ; VENTOLIN HFA) 90 mcg/actuation inhaler Inhale 2 Puffs into the lungs 4 times daily as needed for Cough or Wheezing. 02/07/2024 alendronate (FOSAMAX) 70 mg tablet Take 1 [...] until after first food of the day. 04/10/2024 aspirin 81 mg EC tablet Take 1 tablet (81 mg total) by mouth 2 (two) times a day. 84 each 02/12/2025 5 cetirizine (ZyrTEC) 10 mg chewable tablet Chew 1 tablet (10 mg total) at bedtime as needed for allergies. cholecalciferol (VITAMIN D-3) 50 mcg (2,000 unit) capsule Take by mouth. cyclobenzaprine (FLEXERIL) 10 mg tablet Take 1 tablet (10 mg total) by mouth 3 (three) times a day if needed for muscle spasms. 270 each 01/23/2025 docusate sodium (COLACE) 100 mg capsule Take 1 capsule (100 mg total) by mouth 2 (two) times a day. hydrOXYzine HCL (ATARAX) 25 mg tablet Take 1 tablet (25 mg total) by mouth every 8 (eight) hours if needed for itching. 270 tablet 11/30/2024 metoprolol succinate (TOPROL-XL) 100 mg 24 hr tablet Take 1 tablet (100 mg total) by mouth 1 (one) time each day. 08/23/2024 omeprazole 20 mg tablet,disintegr at, delay rel Take 1 tablet by mouth 1 (one) time each day. 01/07/2023 polyethylene glycol (MIRALAX) 17 gram packet Take 17 g by mouth 1 (one) time each day if needed for constipation. 510 g 02/12/2025 5 documented as of this encounter Discharge Disposition Disposition Code Departure Means Destination Home or Self Care documented in this encounter Plan of Treatment Not on file documented as of this encounter Procedures Procedure Name Priority Date/Time Associated Diagnosis Comments XR FEMUR 2+ VIEWS RIGHT Routine 02/22/2025 10:18 AM EDT Pain documented in this encounter Results * XR Femur 2+ Views Right (02/22/2025 10:18 AM EDT) Narrative RIS PACS/VR - 02/22/2025 10:18 AM EDT This order has been auto-finalized and does not contain a result. us Ann Valle MD IMG XR PROCEDURES Final Result RIS PACS/VR documented in this encounter Visit Diagnoses Diagnosis Pain Generalized pain documented in this encounter Additional Health Concerns Assessment Noted Time PHQ-9 Depression Total Score: 1 01/22/20 25 9:49 PM EST documented as of this encounter Care Teams Tool Room Supervisor Relationship Specialty Start Date End Date Gino Hewitt MD [address] [place] [address] PCP - General 03/17/23 documented as of this encounter
[2025-02-28 07:40] LABS: Appearance Urine Hazy; Color Urine Yellow; Glucose Urine UA Negative (Negative); Leukocyte Esterase Urine Large (3+) (Negative); Nitrite Urine Negative (Negative); PH 6.5 (5.0-9.0); Specific Gravity - Urine <= 1.005 (1.005-1.025); UMIC TRIGGER UA YES; Urine Blood Small (1+) (Negative); Urine Ketones Negative (Negative); Urine Protein Trace mg/dL (Neg-Trace)
[2025-02-28 07:58] LABS: Bacteria Urine 4+ (None Seen); Squamous Epithelial Cell Urine 0-2 /HPF (0-2); WBC Urine >50 /HPF (0-5)
== END 2025-02-27 23:41 | disposition home or self-care (01) ==
LOC: HO.MMNH2L 23:40
PROVIDERS: Visit Provider Student in an Organized Health Care Education/Training Program
DX: S72.91XD Unspecified fracture of right femur, subsequent encounter for closed fracture with routine healing (principal); J45.909 Unspecified asthma, uncomplicated; E80.4 Gilbert syndrome; R82.90 Unspecified abnormal findings in urine
CPT/HCPCS: 81001; 87086; 87088; 87186

== ENCOUNTER 2025-02-28 05:38 | Outpatient (REF) | payer OTHER, SELFPAY | END 2025-02-28 05:39 | disposition home or self-care (01) | LOC: HO.MMNH2L 05:38 | PROVIDERS: Visit Provider Student in an Organized Health Care Education/Training Program | DX: Z13.89 Encounter for screening for other disorder (principal) ==